=== PATIENT | female | born 1960 | race Caucasian/White ===

== ENCOUNTER → 2017-03-20 | Outpatient (CLI) | payer BC ==
[~2017-03-20] MED LIST: METO50TA16 PO
[2017-03-20 18:14] LABS: MANUAL MICROSCOPIC REQUIRED? NO; REVIEW REQ? NO; URINE APPEARANCE CLEAR (CLEAR); URINE BILIRUBIN NEG (NEG); URINE COLOR YELLOW; URINE NITRITE NEG (NEG); URINE SPECIFIC GRAVITY 1.018 (1.000-1.030); UROBILINOGEN NEG (NEG); ZZUR CULT IF INDIC CLEAN CATCH NO
== END | disposition home or self-care (01) ==
LOC: C.LABPBG 15:48
PROVIDERS: ATTEND Nurse Practitioner Family
DX: R39.9 Unspecified symptoms and signs involving the genitourinary system (principal)

== ENCOUNTER → 2017-08-15 | Outpatient (CLI) | payer BC ==
--- NOTE | 2017-08-15 14:35 | MAMMOGRAPHY REPORT ---
BILATERAL DIGITAL SCREENING MAMMOGRAM TOMOSYNTHESIS WITH CAD: 08/15/2017 CLINICAL HISTORY: Routine screening. Patient has no complaints. TECHNIQUE: Breast tomosynthesis in addition to standard 2D mammography was performed. Current study was also evaluated with a Computer Aided Detection (CAD) system. COMPARISON: Comparison is made to exams dated: 08/13/2016 mammogram, 08/11/2015 mammogram, 04/09/2014 mammogram, 04/08/2013 mammogram, 04/07/2012 mammogram, and 04/04/2011 mammogram - [facility]. BREAST COMPOSITION: There are scattered areas of fibroglandular density in both breasts. FINDINGS: No suspicious masses, calcifications, or areas of architectural distortion are noted in ei ther breast. There has been no significant interval change compared to prior exams. IMPRESSION: ACR BI-RADS CATEGORY 1: NEGATIVE There is no mammographic evidence of malignancy. A 1 year screening mammogram is recommended. The pa tient will receive written notification of the results. Approximately 10% of breast cancers are not detected with mammography. A negative mammographic report should not delay biopsy if a clinically suggestive mass is present. Bhumika Krishnan M.D. /:08/15/2017 11:41:11 Airline Lounge Receptionist: Sylvia Dove, [facility] letter sent: Normal 1/2 BI-RADS Code: ACR BI-RADS Category 1: Negative
== END | disposition home or self-care (01) ==
LOC: C.MAMM 09:12
PROVIDERS: ATTEND Family Medicine
DX: Z12.31 Encounter for screening mammogram for malignant neoplasm of breast (principal)

== ENCOUNTER 2021-03-29 05:16 | Inpatient (IN) ==
--- NOTE | 2021-02-16 13:05 | PAT Medication Instructions ---
Medication Instructions Date of Service February 16, 2021 Home Medications Medication Instructions Recorded losartan 25 mg tablet 25 mg PO DAILY #90 tab 04/18/20 metoprolol succinate 25 mg 25 mg PO BID #180 tab 04/18/20 tablet,extended release 24 hr spironolactone 25 mg tablet 25 mg PO DAILY #90 tab 11/11/20 losartan 25 mg tablet 25 mg PO DAILY metoprolol succinate 25 mg tablet,extended release 24 hr 25 mg PO BID spironolactone 25 mg tablet 25 mg PO DAILY cholecalciferol (vitamin D3) [Vitamin D3] 25 mcg PO QAM vitamin E 100 unit PO QAM STOP taking 2 weeks before surgery (or as soon as possible if surgery is within 2 weeks) vitamin E 100 unit PO QAM DO NOT take the morning of surgery losartan 25 mg tablet 25 mg PO DAILY spironolactone 25 mg tablet 25 mg PO DAILY cholecalciferol (vitamin D3) [Vitamin D3] 25 mcg PO QAM Take morning of surgery With a small sip of water, OTHERWISE NOTHING TO EAT OR DRINK AFTER MIDNIGHT: metoprolol succinate 25 mg tablet,extended release 24 hr 25 mg PO BID Take evening before surgery metoprolol succinate 25 mg tablet,extended release 24 hr 25 mg PO BID Other Notes If you have any questions please call us at [phone] or [phone] or [phone] or [phone]
--- NOTE | 2021-02-20 11:47 | Anesthesiology Consultation ---
Date of Service February 20, 2021 Assessment & Plan (1) Encounter for pre-operative examination: COVID Status: As of 02/20 assessment, patient denies travel to endemic area, known exposure/sick contacts, or symptoms of COVID19. Patient instructed that they and their household members must follow strict social distancing guidelines, wear a mask in public and avoid travel/events/gatherings for 14 days prior to surgery. Preoperative COVID19 testing to be completed prior to surgery per surgeon's arrangements (pt aware of need for test). Patient made aware to self-isolate as much as possible between COVID testing and surgery. Pt is fully vaccinated. *Presumed DIFFICULT AIRWAY -- based on exam and pt's own report. May also be difficult SAB due to body habitus. Chart Review Chart Review: Acceptable Risk for Surgery and Patient seen in Pre Admission Testing Teaching & Discussion Instructed NPO after midnight before surgery, except medications with 15 cc of water. Medication instructions provided according to the PAT guidelines. History Surgery Operation Date: 03/29/21 12:45 Proposed Procedures p Right Total Knee Arthroplasty - Rodolfo Rosales DO Height/Weight Height: 5 ft 2.5 in Weight: 121.6 kg Allergies Allergy/AdvReac Type Severity Reaction Status Date / Time No Known Allergies Allergy Unknown Verified 02/06/21 09:46 Medications Home Medications Medication Instructions Recorded Confirmed Last Taken losartan 25 mg tablet 25 mg PO DAILY #90 tab 04/18/20 02/06/21 Unknown metoprolol succinate 25 mg 25 mg PO BID #180 tab 04/18/20 02/06/21 Unknown tablet,extended release 24 hr spironolactone 25 mg tablet 25 mg PO DAILY #90 tab 11/11/20 02/06/21 Unknown cholecalciferol (vitamin D3) 25 mcg PO QAM 02/06/21 02/06/21 Unknown [Vitamin D3] vitamin E 100 unit PO QAM 02/06/21 02/06/21 Unknown Past Medical History Medical History Dysphagia To have EGD 02/22 at [facility] Fatty liver GERD (gastroesophageal reflux disease) Glaucoma Hirsutism Hypertension Hypertriglyceridemia Morbid obesity Snoring Has been sleeping in a recliner for years, unable to lay flat Vitamin D deficiency Exercise / Class Metabolic Activity III < 4 Walking/Shop/Light housework (Does not do stairs, denies CP or SOB with ambulation on one level) Past Family History Family History Grandfather (Maternal) Family history of diabetes mellitus Father COPD (chronic obstructive pulmonary disease) Hypertension Grandmother (Maternal) Heart disease Myocardial infarction Brother Family history of diabetes mellitus Other Diabetes No family history of adverse response to anesthesia Denies family history of Ovarian cancer Prostate cancer Breast cancer Lung cancer Colorectal cancer Past Surgical History Surgical History Difficult airway for intubation per pt she was told by an anesthesiologist at [facility] that "she has a small airway" H/O eye surgery RT/LEFT EYE "FOR GLAUCOMA" History of ankle surgery right; no hardware History of colonoscopy History of hemorrhoidectomy History of repair of congenital cleft palate History of tooth extraction S/P dilatation and curettage Status post abdominal hysterectomy and left salpingo-oophorectomy Past Anesthesia History Difficult Airway (pt reports she was told this by previous MDAs) History of PONV No Hx of PONV Social History Smoking Status: Never smoker Do You Dip or Chew Tobacco: No Hx Alcohol Use: No Hx Substance Use: No substance use type: does not use Review of Systems Pt denies any recent chest pain, shortness of breath, palpitations, cough, fever, URI, or uncontrolled acid reflux. +dysphagia +knee pain Physical Exam Vital Signs BP: 129/87 P: 73bpm SPO2: 94% RA T: 98.1 F R: 18 Constitutional + morbidly obese ENMT Mouth: + small oral opening; no dental restorations, no chipped teeth and no loose teeth Thyromental Distance: > or= 3.5 Finger Breadths (difficult to palpate) Mallampati Class: IV Neck + thick neck (very); neck extension not limited Respiratory normal respiratory effort, lungs clear to auscultation Cardiovascular RRR, no murmur, no edema Testing Laboratory Results 02/20/21 11:55 02/20/21 11:55 PT 10.4 Seconds (9.0-12.0) 02/20/21 11:55 INR 1.0 (0.9-1.1) 02/20/21 11:55 APTT 28.5 Seconds (21.0-31.0) 02/20/21 11:55 Hemoglobin A1c 6.2 % (4.5-5.6) H 02/20/21 11:55 Blood Type O Positive 02/20/21 11:55 Antibody Screen NEGATIVE 02/20/21 11:55 Electrocardiogram Date: 02/20/21 Findings: + NSR @ (74bpm) Chest X-Ray Date: 02/20/21 Findings: + NAD
--- NOTE | 2021-02-20 12:35 | XRay Report ---
XR chest Pre-admission PA/Lat CLINICAL HISTORY: Preoperative chest. ABNORMAL LIVER ENZYMES. CHOLELITHIASIS. COMPARISON STUDY: No previous studies for comparison. FINDINGS: The cardiac and mediastinal contours are normal. There is no evidence of focal pulmonary co nsolidation. There is no evidence of failure. No pleural effusions are visualized.[Degenerative domingo es are present within the dorsal spine. IMPRESSION: No active disease in the chest. ACT 112: Negative or not required by law. Electronically signed by: Arsenio Hall M.D. 02/20/2021 12:34 PM
[2021-02-20 13:10] LABS: Basophils # (auto) 0.03 K/uL (0-0.2); Basophils % (auto) 0.5 %; Eosinophils # (auto) 0.25 K/uL (0-0.5); Hemoglobin 15.1 g/dL (12.0-16.0); Immature Granulocytes # (auto) 0.01 K/uL (0.00-0.02); Immature Granulocytes % (auto) 0.2 %; Lymphocytes # (auto) 2.08 K/uL (1.2-3.4); Lymphocytes % (auto) 33.4 %; Mean Corpuscular Hemoglobin 29.5 pg (25-34); Mean Corpuscular Hgb Conc 32.1 g/dL (32-36); Mean Platelet Volume 10.3 fL (7.4-10.4); Monocytes # (auto) 0.41 K/uL (0.11-0.59); Monocytes % (auto) 6.6 %; Neutrophils # (auto) 3.44 K/uL (1.4-6.5); Neutrophils % (auto) 55.3 %; Platelet Count 174 K/uL (130-400); RDW Coefficient of Variation 13.9 % (11.5-14.5); RDW Standard Deviation 47.1 fL (36.4-46.3); Red Blood Count 5.11 M/uL (4.2-5.4); White Blood Count 6.22 K/uL (4.8-10.8)
[2021-02-20 13:20] LABS: Partial Thromboplastin Ratio 1.1; Partial Thromboplastin Time 28.5 Seconds (21.0-31.0); Prothrombin Time 10.4 Seconds (9.0-12.0)
[2021-02-20 13:56] LABS: Estimated Average Glucose 131 mg/dl; Hemoglobin A1C 6.2 % (4.5-5.6)
--- NOTE | 2021-02-20 14:52 | Electrocardiogram Report ---
Test Reason : Blood Pressure : / mmHG Vent. Rate : 074 BPM Atrial Rate : 074 BPM P-R Int : 146 ms QRS Dur : 082 ms QT Int : 388 ms P-R-T Axes : 054 070 067 degrees QTc Int : 430 ms Normal sinus rhythm Normal ECG No previous ECGs available Confirmed by Bassem Michel ([id number]) on 02/20/2021 2:52:26 PM Referred By: Rodolfo Rosales Confirmed By:Bassem Michel
[2021-02-20 16:27] LABS: Albumin Level 3.8 gm/dl (3.4-5.0); BUN Creatinine Ratio 18.8 (10-20); Calcium 9.2 mg/dl (8.5-10.1); Creatinine Clr Calc Pharmacy 88.1 ml/min; Est GFR (African American) 87.6; Est GFR (Non-African American) 75.6; Potassium 4.1 mmol/L (3.5-5.1)
[2021-02-21 13:17] LABS: Appearance Urine Clear (Clear); Bilirubin Urine Negative (Negative); Blood Urine Negative (Negative); Color Urine Yellow; Glucose Urine UA Negative (Negative); Ketones Urine Negative (Negative); Leukocyte Esterase Urine Negative (Negative); Nitrite Urine Negative (Negative); Protein Urine Negative (Negative); Specific Gravity Urine 1.019 (1.000-1.030); Urobilinogen Urine Negative (Negative)
--- NOTE | 2021-03-01 13:26 | History & Physical Report ---
Date of Service March 01, 2021 date of surgery: 03/29/21 Procedure: Right Total Knee Arthroplasty Assessment & Plan (1) Arthritis of right knee: Further care discussed with patient and at this point in time has failed conservative measures and would like to proceed with a Right total knee rep lacement. Plan on discharge will be home with home health physical therapy. DVT prophalaxis with TEDs, SCDs and will also place on aspirin 81 mg p.o. b.i.d. for a month postop. Patient will have follow up appointment in our office two weeks post op for staple removal and re-evaluation. Patient otherwise has no other questions or concerns. The risks and benefits have been discussed including, but not limited to, risk of infection, nerve injury, stiffness, loss of motion, failure to improve, etc. Reasonable outcomes and options of treatment were discussed. An explanation of appropriate alternatives to the procedure that may be advantageous were discussed and their risks and benefits, as well as the risks and benefits of not proceeding with treatment. I offered to answer any additional inquiries concerning the treatment involved. All the patient's questions were answered. The patient is agreeable, understanding of the treatment plan and alternatives, and wishes to proceed with the treatment plan. History of Present Illness Chief Complaint: Right knee pain Primary Care Provider: DO Larissa Gerber is a 60 year old female who complains of Right knee pain, presents for pre- op evaluation prior to a right total knee replacement by Dr Rosales at [facility]. she complains of pain and stiffness in the right knee. Currently the patient states that the symptoms are moderate-severe and is rated at 4/10. The pain is described as aching, sharp and throbbing. The symptoms are aggravated by ascending stairs, daily activities, first steps while awake walking. Prior NSAIDs include Aleve and IBU. she has been treated with previous cortisone and visco injections (Durolane) in the past without much relief. she also uses a brace on her right knee. Allergies Allergy/AdvReac Type Severity Reaction Status Date / Time No Known Allergies Allergy Unknown Verified 02/22/21 11:22 Home Medications Medication Instructions Recorded Confirmed Type losartan 25 mg tablet 25 mg PO DAILY #90 tab 04/18/20 02/22/21 Rx metoprolol succinate 25 mg 25 mg PO BID #180 tab 04/18/20 02/22/21 Rx tablet,extended release 24 hr spironolactone 25 mg tablet 25 mg PO DAILY #90 tab 11/11/20 02/22/21 Rx cholecalciferol (vitamin D3) 25 mcg PO QAM 02/06/21 02/22/21 History [Vitamin D3] vitamin E 100 unit PO QAM 02/06/21 02/22/21 History pantoprazole 40 mg PO DAILY #30 tab 02/22/21 Rx pantoprazole 40 mg PO DAILY #30 tab 02/22/21 Rx Past Med/Surg History Medical History Dysphagia To have EGD 02/22 at [facility] Fatty liver GERD (gastroesophageal reflux disease) Glaucoma Hirsutism Hypertension Hypertriglyceridemia Morbid obesity Snoring Has been sleeping in a recliner for years, unable to lay flat Vitamin D deficiency Surgical History Difficult airway for intubation per pt she was told by an anesthesiologist at [facility] that "she has a small airway" H/O eye surgery RT/LEFT EYE "FOR GLAUCOMA" History of ankle surgery right; no hardware History of colonoscopy History of hemorrhoidectomy History of repair of congenital cleft palate History of tooth extraction S/P dilatation and curettage Status post abdominal hysterectomy and left salpingo-oophorectomy Family History Grandfather (Maternal) Family history of diabetes mellitus Father COPD (chronic obstructive pulmonary disease) Hypertension Grandmother (Maternal) Heart disease Myocardial infarction Brother Family history of diabetes mellitus Other Diabetes No family history of adverse response to anesthesia Denies family history of Ovarian cancer Prostate cancer Breast cancer Lung cancer Colorectal cancer Social History Smoking Status: Never smoker Second Hand Exposure: Yes (dad smoked); Hx Alcohol Use: No Hx Substance Use: No Preferred Language: Sami Communication Ability: Effective Visual Impairment: No Limitations Hearing Ability: Normal Substance Abuse Nurse Required: No Beliefs That Will Affect Care: None marital status: Current Living Situation: Spouse current occupational status: employed Feels Safe at Home: Yes Childhood Exposure to Second-Hand Smoke: Yes Diet Comment: regular caffeine: No during the past year weight has: remained stable Dental Care, Regularly: Yes Physical Activity Frequency: Does not Exercise Seatbelt Use: always Sunscreen Use: No Assistive Devices: Glasses Review of Systems Review of Systems: All systems reviewed & are unremarkable except as noted in HPI & below Constitutional: no fever, no chills and no sweats Respiratory: no cough and no dyspnea Cardiovascular: no chest pain, no dyspnea and no orthopnea Gastrointestinal: no abdominal pain, no nausea and no vomiting Musculoskeletal: as per Subjective / HPI Physical Exam Physical Exam: HT: 5ft 2 in WT: 121.6kg BP: 130/82 Pulse: 76 Constitutional: WD/WN, vitals as above no acute distress Respiratory: normal respiratory effort, lungs clear to auscultation no respiratory distress, no labored breathing and does not use accessory muscles Cardiovascular: RRR, no murmur, no edema Gastrointestinal (Abdomen): normal bowel sounds, soft, nontender, no hepatosplenomegaly Musculoskeletal: Knee: + knee abnormal to inspection (Right Knee), + effusion (+1 effusion), + limited ROM of knee (ROM 0/3/110), + knee ROM with crepitation, + joint line tenderness (medial joint line) and + Cory's sign positive; no deformity, no skin erythema, no ecchymosis, no valgus laxity, no varus laxity, anterior drawer test negative, Flori's sign negative and pivot shift test negative Results & Data Results & Data ([facility]) Laboratory Results Laboratory Results WBC 6.22 K/uL (4.8-10.8) 02/20/21 11:55 RBC 5.11 M/uL (4.2-5.4) 02/20/21 11:55 Hgb 15.1 g/dL (12.0-16.0) 02/20/21 11:55 Hct 47.0 % (37-47) 02/20/21 11:55 MCV 92.0 fL (80-100) 02/20/21 11:55 MCH 29.5 pg (25-34) 02/20/21 11:55 MCHC 32.1 g/dL (32-36) 02/20/21 11:55 RDW Std Deviation 47.1 fL (36.4-46.3) H 02/20/21 11:55 RDW Coeff of Noreen 13.9 % (11.5-14.5) 02/20/21 11:55 Plt Count 174 K/uL (130-400) 02/20/21 11:55 MPV 10.3 fL (7.4-10.4) 02/20/21 11:55 Immature Gran % (Auto) 0.2 % 02/20/21 11:55 Neut % (Auto) 55.3 % 02/20/21 11:55 Lymph % (Auto) 33.4 % 02/20/21 11:55 Evans % (Auto) 6.6 % 02/20/21 11:55 Eos % (Auto) 4.0 % 02/20/21 11:55 Baso % (Auto) 0.5 % 02/20/21 11:55 Neut # (Auto) 3.44 K/uL (1.4-6.5) 02/20/21 11:55 Lymph # (Auto) 2.08 K/uL (1.2-3.4) 02/20/21 11:55 Evans # (Auto) 0.41 K/uL (0.11-0.59) 02/20/21 11:55 Eos # (Auto) 0.25 K/uL (0-0.5) 02/20/21 11:55 Baso # (Auto) 0.03 K/uL (0-0.2) 02/20/21 11:55 Immature Gran # (Auto) 0.01 K/uL (0.00-0.02) 02/20/21 11:55 PT 10.4 Seconds (9.0-12.0) 02/20/21 11:55 INR 1.0 (0.9-1.1) 02/20/21 11:55 APTT 28.5 Seconds (21.0-31.0) 02/20/21 11:55 PTT Ratio 1.1 02/20/21 11:55 Sodium 141 mmol/L (136-145) 02/20/21 11:55 Potassium 4.1 mmol/L (3.5-5.1) 02/20/21 11:55 Chloride 106 mmol/L (98-107) 02/20/21 11:55 Carbon Dioxide 31 mmol/L (21-32) 02/20/21 11:55 Anion Gap 4.0 (3-11) 02/20/21 11:55 BUN 16 mg/dl (7-18) 02/20/21 11:55 Creatinine 0.83 mg/dl (0.6-1.2) 02/20/21 11:55 Est Cr Clr Drug Dosing 88.1 ml/min 02/20/21 11:55 Est GFR ( Amer) 87.6 02/20/21 11:55 Est GFR (Non-Af Amer) 75.6 02/20/21 11:55 BUN/Creatinine Ratio 18.8 (10-20) 02/20/21 11:55 Glucose 114 mg/dl (70-99) H 02/20/21 11:55 Estimat Average Glucose 131 mg/dl 02/20/21 11:55 Hemoglobin A1c 6.2 % (4.5-5.6) H 02/20/21 11:55 Calcium 9.2 mg/dl (8.5-10.1) 02/20/21 11:55 Albumin 3.8 gm/dl (3.4-5.0) 02/20/21 11:55 Urine Color Yellow 02/21/21 09:00 Urine Appearance Clear (Clear) 02/21/21 09:00 Urine pH 5.0 (4.5-7.5) 02/21/21 09:00 Ur Specific [place] 1.019 (1.000-1.030) 02/21/21 09:00 Urine Protein Negative (Negative) 02/21/21 09:00 Urine Glucose (UA) Negative (Negative) 02/21/21 09:00 Urine Ketones Negative (Negative) 02/21/21 09:00 Urine Blood Negative (Negative) 02/21/21 09:00 Urine Nitrite Negative (Negative) 02/21/21 09:00 Urine Bilirubin Negative (Negative) 02/21/21 09:00 Urine Urobilinogen Negative (Negative) 02/21/21 09:00 Ur Leukocyte Esterase Negative (Negative) 02/21/21 09:00 Blood Type O Positive 02/20/21 11:55 Antibody Screen NEGATIVE 02/20/21 11:55 Impressions Chest X-Ray 02/20/21 08:24 XR chest Pre-admission PA/Lat CLINICAL HISTORY: Preoperative chest. ABNORMAL LIVER ENZYMES. CHOLELITHIASIS. COMPARISON STUDY: No previous studies for comparison. FINDINGS: The cardiac and mediastinal contours are normal. There is no evidence of focal pulmonary consolidation. There is no evidence of failure. No pleural effusions are visualized.[Degenerative changes are present within the dorsal spine. IMPRESSION: No active disease in the chest. ACT 112: Negative or not required by law. Electronically signed by: Arsenio Hall M.D. 02/20/2021 12:34 PM Diagnostic Findings Right Knee X-ray: Right knee series showing degenerative changes to the right knee, narrowing of the medial compartment and patello-femoral joint with patellar spurring noted, findings showing joint space narrowing of the medial compartment and patello- femoral joint, osteophyte formation and subchondral sclerosis noted. overall varus alignment. no acute bony pathology noted.
[2021-03-29] MEDS ORDERED: FAMOTIDINE 20 MG TAB PO SCH (06:00)
[2021-03-29] MEDS ORDERED: CeleBREX 200 MG CAP PO SCH (06:00)
[2021-03-29] MEDS ORDERED: METOCLOPRAMIDE HCL 10 MG TABLET PO SCH (06:00)
[2021-03-29] MEDS ORDERED: TRANEXAMIC ACID 1,000 MG **IV Pre-op IV SCH (06:00)
[2021-03-29] MEDS ORDERED: ROPIVACAINE 0.5% HCL/PF 150 MG, BUPIVACAINE 0.75% MPF 20 ML, EPINEPHrine 30MG/30ML (OR ... INSTIL SCH (06:00)
[2021-03-29] MEDS ORDERED: LR 15ML/HR IV SCH (06:00)
[2021-03-29] MEDS ORDERED: TRANEXAMIC ACID 1,000 MG **IV Intra-op IV SCH (06:00)
[2021-03-29] MEDS ORDERED: GABAPENTIN 600 MG DOSE PO SCH (06:00)
[2021-03-29] MEDS ORDERED: ACETAMINOPHEN 500 MG TAB PO SCH (06:00)
[2021-03-29] MEDS ORDERED: dexAMETHasone 4 MG TAB PO SCH (06:00)
[2021-03-29] MEDS ORDERED: EPINEPHrine INJ 1 MG/ML AMP ONE (06:20)
[2021-03-29] MEDS ORDERED: ROPIVACAINE 0.5% 5 MG/ML 30 ML VIAL ONE (06:20)
[2021-03-29] MEDS ORDERED: BUPIVACAINE 0.5 % 5 MG/1 ML PF 10ML VIAL ONE (06:20)
[2021-03-29] MEDS ORDERED: LIDOCAINE 2% 2 ML VIAL/AMP(20MG/ML) INFIL ONE ×2 (06:43→06:44)
[2021-03-29] MEDS ORDERED: PROPOFOL IV EMULSION 10 MG/ML 20 ML VIAL IV ONE ×2 (06:43→06:44)
[2021-03-29] MEDS ORDERED: fentaNYL citrate 100 MCG/2 ML VIAL ONE (06:43)
[2021-03-29] MEDS ORDERED: MIDAZOLAM HCL 1 MG/ML 2ML VIAL ONE (06:43)
[2021-03-29] MEDS ORDERED: ORTHO JOINT ANESTHETIC ONE (06:45)
--- NOTE | 2021-03-29 07:17 | History & Physical Bridge Note ---
Date of Service March 29, 2021 History & Physical Bridge Note I have examined the patient, reviewed the History & Physical and in the interval since the performance of the History & Physical I have noted the following changes of clinical significance: no changes noted
[2021-03-29] MEDS ORDERED: MEPERIDINE HCL 25 MG/ML CARP/VIAL IV PRN (08:01)
[2021-03-29] MEDS ORDERED: PHENYLEPHRINE 100MCG/ML 5ML SYR IV PRN (08:01)
[2021-03-29] MEDS ORDERED: ONDANSETRON INJ 2 MG/ML 2 ML VIAL IV PRN ×2 (08:01→10:39)
[2021-03-29] MEDS ORDERED: ATROPINE SULFATE 0.1 MG/ML 10ML SYR IV PRN (08:01)
[2021-03-29] MEDS ORDERED: LABETALOL HCL IV 5 MG/ML 20ML IV PRN (08:01)
[2021-03-29] MEDS ORDERED: HYDROmorphone INJ 1 MG/ML SYRINGE IV PRN (08:01)
[2021-03-29] MEDS ORDERED: fentaNYL citrate 100 MCG/2 ML VIAL IV PRN (08:01)
[2021-03-29] MEDS ORDERED: ePHEDrine sulfate 50 MG/ML AMP IV PRN (08:01)
--- NOTE | 2021-03-29 08:26 | Operative Report ---
Post Operative Report Pre & Post Diagnosis Operation Date: 03/29/21 07:00 Pre-Op Diagnosis: Osteoarthritis, Right Knee Post-Op Diagnosis: Osteoarthritis, Right Knee I identified the patient and participated in the time-out.: Yes Procedure Operation Date: 03/29/21 07:00 Actual Procedures p Right Total Knee Arthroplasty(Right) utilizing [employer] persona size femur 7 narrow tibia D right \polyethylene 11 medial constrained patella 31 x 8 salvador- Rodolfo Rosales DO Surgeon Rodolfo Rosales DO Tie Buyer Ion CUENCA Estimated Blood Loss 5 Findings Consistent with Post-Op Diagnosis Patient resents with severe stage tricompartmental degenerative joint disease varus alignment subchondral sclerosis marginal osteophytes eburnated [id number] with moderate to large effusion Specimens Bone and cartilage Drains Medium bore Hemovac Anesthesia Type MAC Spinal Regional Complications none Disposition Accompanied Patient To Recovery: No Disposition: Recovery Room Indications Patient presents with severe end-stage tricompartmental degenerative joint disease right knee no response to conservative management clinic physical the rapy anti-inflammatories relative rest activity modification corticosteroid injection viscosupplementation above intraoperative findings were noted. Description of Procedure After proper prepping and draping of the Right lower extremity anterior midline incision was made over the region of the extensor extensor mechanism after meticulous hemostasis was obtained and maintained in subcutaneous tissues a medial parapatellar incision was made The patella was subluxed lateralward the medial lateral gutter were cleaned from any hypertrophic synovitis and scar tissue of the distal femoral block was placed and the distal femoral osteotomy cut was made subsequently the chamfers anterior and posterior osteotomy cuts were made utilizing the 4-in-1 block the tibia was subsequently subluxed anteriorward medial and ateral meniscal remnants were excised in their entirety remnants of the anterior and posterior cruciate ligaments were excised in their entirety excellent exposure of the proximal tibia was obtained the tibial osteotomy guide was placed on the proximal tibial osteotomy cut was made once again the knee was irrigated with copious amounts of sterile saline solution the patella was subsequently everted lateralward thickened scar tissue around the patella was removed the patella was subsequently cut utilizing a freehand technique and was drilled prepared for final preparation and placement of patella socially flexion-extension gaps were checked and the equal and symmetric trials were placed to the appropriate femoral and tibial trials with poly-spacer being placed for equal flexion and extension gaps and full range of motion including extension to 0 and flexion to 140 the trial components after having been taken to recovery range of motion was subsequently removed meticulous hemostasis was obtained and maintained subsequently a knee block injection of joint cocktail including ropivacaine 0.5% 150 mg. Bupivacaine 0.5% epinephrine 1-200,030 mL's toradol 30 mg dexamethasone 4 mg ketamine 10 mg clonidine 100 micrograms normal saline solution 30 mg was infiltrated into the soft tissues of the posterior knee medial lateral gutters and periosteal synovium special attention was paid to protect neurovascular structures at all times subsequently trial components having been removed the knee was irrigated with sterile saline solution. debris was removed the proximal tibia was subsequently prepared and was made ready for the placement of the tibial component tibial component was also cemented and tamped into position the femoral component was subsequently placed and cemented in the position the patellar component was subsequently cemented in position because hemostasis once again obtained and maintained wound having been thoroughly irrigated with debridement and debridement lavage was performed as well as a medial parapatellar incision closed with #1 Vicryl in interrupted fashion subcutaneous was closed with #2 Vicryl skin was closed with skin clips. PA-C was necessary for prepping and drapping as well as wound closure of deep fascia Sub cutaneous tissue and skin and was necessary for the case. A sterile compressive dressing was placed patient was taken to recovery in stable condition of report dictated by Bobby I attest to the content of the Intraoperative Record and any orders documented therein. Any exceptions are noted below. I attest to the content of the Intraoperative Record and any orders documented therein. Any exceptions are noted below.
--- NOTE | 2021-03-29 10:12 | Anesthesiology Progress Note ---
Date of Service March 29, 2021 Anesthesia Post Procedure Vital Signs Vital Signs: Temp Pulse Pulse Resp BP BP Pulse Ox 03/29/21 10:10 36.4 C L 65 20 124/57 L 94 03/29/21 10:00 74 20 102/65 95 03/29/21 09:50 92 H 17 107/69 93 03/29/21 09:40 70 17 107/66 94 03/29/21 09:30 77 16 111/64 95 03/29/21 09:20 77 18 111/59 L 96 03/29/21 09:13 36.2 C L 99 H 16 131/63 95 03/29/21 05:33 36.6 C 87 20 154/96 H 96 Transfer of Care Handoff Completed per policy Notes Mental Status: alert / awake / arousable Patient Amnestic to Procedure: Yes Nausea / Vomiting: adequately controlled Pain: adequately controlled Airway Patency, RR, SpO2: stable & adequate BP & HR: stable & adequate Hydration State: stable & adequate Neuraxial Anesthesia: was administered and sensory block is resolving Anesthetic Complications: no major complications apparent and Pt Satisfied with anesthetic care
[2021-03-29] MEDS ORDERED: MAGNESIUM HYDROXIDE SUSP 30 ML UDC PO PRN (10:39)
[2021-03-29] MEDS ORDERED: bisacodyL 10 MG SUPP PR PRN (10:39)
[2021-03-29] MEDS ORDERED: HYDROmorphone INJ 0.5 MG/0.5 ML SYR IV PRN (10:39)
[2021-03-29] MEDS ORDERED: NALOXONE HCL 0.4 MG/1 ML VIAL/CARP IV PRN (10:39)
--- NOTE | 2021-03-29 10:43 | XRay Report ---
XR knee RT 1 or 2V routine CLINICAL HISTORY: Surgical Post Op COMPARISON: 05/25/2014 DISCUSSION: There are postsurgical changes of a total right knee arthroplasty and patellar resurfacin g. Overlying skin bakari and surgical drains are visualized. Femoral tibial components appear well s eated. IMPRESSION: Postsurgical changes of a total right knee arthroplasty. ACT 112: Negative or not required by law. Electronically signed by: Arsenio Hall M.D. 03/29/2021 10:42 AM
[2021-03-29] MEDS: SODIUM CHLORIDE 0.9% 1000ML 1,000 ML IV SCH ×2 (11:05→21:58)
[2021-03-29] MEDS: ceFAZolin 2000MG 2,000 MG/15 ML SYR IV SCH ×2 (14:15→21:01)
[2021-03-29] MEDS: oxyCODONE HCL IR 5 MG TAB (IMMEDIATE RELEASE) PO PRN ×2 (17:15→19:47)
[2021-03-29] MEDS: FERROUS GLUCONATE 324 MG TAB PO SCH (17:15)
[2021-03-29] MEDS ORDERED: SENNA 8.6 MG TAB PO SCH (21:00)
[2021-03-29] MEDS: DOCUSATE SODIUM 100 MG CAP PO SCH (21:00)
[2021-03-29] MEDS: METOPROLOL SUCC 25MG EXT REL TAB PO SCH (21:00)
[2021-03-29] MEDS: ACETAMINOPHEN 500 MG TAB PO SCH (21:01)
[2021-03-30] MEDS: oxyCODONE HCL IR 5 MG TAB (IMMEDIATE RELEASE) PO PRN ×3 (05:20→12:50)
[2021-03-30] MEDS: ACETAMINOPHEN 500 MG TAB PO SCH (05:20)
[2021-03-30 06:01] LABS: Hematocrit (blood only) 41.9 % (37-47); Mean Corpuscular Hemoglobin 29.2 pg (25-34); Mean Corpuscular Volume 94.2 fL (80-100); Mean Platelet Volume 10.3 fL (7.4-10.4); Platelet Count 178 K/uL (130-400); RDW Coefficient of Variation 13.9 % (11.5-14.5); RDW Standard Deviation 47.6 fL (36.4-46.3); Red Blood Count 4.45 M/uL (4.2-5.4); White Blood Count 13.13 K/uL (4.8-10.8)
[2021-03-30 06:36] LABS: BUN Creatinine Ratio 19.1 (10-20); Calcium 8.5 mg/dl (8.5-10.1); Creatinine Clr Calc Pharmacy 74.9 ml/min; Est GFR (African American) 70.8 ml/min; Est GFR (Non-African American) 61.1 ml/min
--- NOTE | 2021-03-30 07:19 | Orthopedic Progress Note ---
Date of Service March 30, 2021 Assessment & Plan (1) History of total right knee replacement: POD #1 s/p Right TKA pt/ot dvt proph with GUILLE/SCD/ASA plan for d/c home with HHPT when stable Admission and Anticipated Discharge Date Admission Date: March 29, 2021 Subjective POD #1 s/p Right TKA Review of Systems Constitutional: no fever, no chills and no sweats Respiratory: no cough and no dyspnea Cardiovascular: no chest pain and no dyspnea Gastrointestinal: no abdominal pain, no nausea and no vomiting Physical Exam Physical Exam: Vital Signs Temp 36.5 C 03/30/21 03:24 Pulse 70 03/30/21 03:24 Resp 18 03/30/21 03:24 BP 121/76 03/30/21 03:24 Pulse Ox 96 03/30/21 03:24 Intake & Output 03/29/21 03/30/21 03/30/21 18:59 06:59 18:59 Intake Total 1532.5 / 2732.5 1200 / 2732.5 Output Total 355 / 705 350 / 705 Balance 1177.5 / 2027.5 850 / 2027.5 Intake: IV 272.5 / 1272.5 1000 / 1272.5 Lactated Ringe r's 1,000 ml @ 15 0 / 0 mls/hr IV .Q24 H LEILA Rx#: [id number] Sodium Chlorid e 0.9% 1000ML 1, 1000 / 1000 000 ml @ 100 m ls/hr IV .Q10H LEILA Rx#:[id number] Tranexamic Aci d / 0.7% NaCl 1, 200 / 200 000 mg In 100 ml @ 600 mls/hr IV TODAY@0600 LEILA Rx#:[id number] ceFAZolin 3000 MG 72.5 ml @ 130 72.5 / 72.5 mls/hr IV PREO P LEILA Rx#: [id number] IV Perioperative 1100 / 1100 Oral 160 / 360 200 / 360 Output: Urine 350 / 350 Estimated Blood Loss 5 / 5 Drain Output 350 / 350 Right Knee 350 / 350 Other: # Unmeasured Voi ds 1 1 Constitutional: WD/WN, vitals as above no acute distress Musculoskeletal: Right Leg: NVDI, calf SNT, negative alexander sign. DP palpable, able to wiggle toes/ankle movement without difficulty. dressing clean dry and intact. Results & Data ([facility]) Vital Signs (Past 12 Hours) Vital Signs Temp Pulse Resp BP Pulse Ox 03/30/21 03:24 36.5 C 70 18 121/76 96 03/29/21 23:47 96 03/29/21 23:38 36.7 C 74 18 126/78 87 L Laboratory Results Laboratory Results WBC 13.13 K/uL (4.8-10.8) H 03/30/21 05:39 RBC 4.45 M/uL (4.2-5.4) 03/30/21 05:39 Hgb 13.0 g/dL (12.0-16.0) 03/30/21 05:39 Hct 41.9 % (37-47) 03/30/21 05:39 MCV 94.2 fL (80-100) 03/30/21 05:39 MCH 29.2 pg (25-34) 03/30/21 05:39 MCHC 31.0 g/dL (32-36) L 03/30/21 05:39 RDW Std Deviation 47.6 fL (36.4-46.3) H 03/30/21 05:39 RDW Coeff of Noreen 13.9 % (11.5-14.5) 03/30/21 05:39 Plt Count 178 K/uL (130-400) 03/30/21 05:39 MPV 10.3 fL (7.4-10.4) 03/30/21 05:39 Immature Gran % (Auto) 0.2 % 02/20/21 11:55 Neut % (Auto) 55.3 % 02/20/21 11:55 Lymph % (Auto) 33.4 % 02/20/21 11:55 [place] % (Auto) 6.6 % 02/20/21 11:55 Eos % (Auto) 4.0 % 02/20/21 11:55 Baso % (Auto) 0.5 % 02/20/21 11:55 Neut # (Auto) 3.44 K/uL (1.4-6.5) 02/20/21 11:55 Lymph # (Auto) 2.08 K/uL (1.2-3.4) 02/20/21 11:55 [place] # (Auto) 0.41 K/uL (0.11-0.59) 02/20/21 11:55 Eos # (Auto) 0.25 K/uL (0-0.5) 02/20/21 11:55 Baso # (Auto) 0.03 K/uL (0-0.2) 02/20/21 11:55 Immature Gran # (Auto) 0.01 K/uL (0.00-0.02) 02/20/21 11:55 PT 10.4 Seconds (9.0-12.0) 02/20/21 11:55 INR 1.0 (0.9-1.1) 02/20/21 11:55 APTT 28.5 Seconds (21.0-31.0) 02/20/21 11:55 PTT Ratio 1.1 02/20/21 11:55 Sodium 143 mmol/L (136-145) 03/30/21 05:39 Potassium 5.0 mmol/L (3.5-5.1) 03/30/21 05:39 Chloride 108 mmol/L (98-107) H 03/30/21 05:39 Carbon Dioxide 31 mmol/L (21-32) 03/30/21 05:39 Anion Gap 4.0 (3-11) 03/30/21 05:39 BUN 19 mg/dl (7-18) H 03/30/21 05:39 Creatinine 0.99 mg/dl (0.6-1.2) 03/30/21 05:39 Est Cr Clr Drug Dosing 74.9 ml/min 03/30/21 05:39 Est GFR ( Amer) 70.8 ml/min 03/30/21 05:39 Est GFR (Non-Af Amer) 61.1 ml/min 03/30/21 05:39 BUN/Creatinine Ratio 19.1 (10-20) 03/30/21 05:39 Glucose 161 mg/dl (70-99) H 03/30/21 05:39 Estimat Average Glucose 131 mg/dl 02/20/21 11:55 Hemoglobin A1c 6.2 % (4.5-5.6) H 02/20/21 11:55 Calcium 8.5 mg/dl (8.5-10.1) 03/30/21 05:39 Albumin 3.8 gm/dl (3.4-5.0) 02/20/21 11:55 Urine Color Yellow 02/21/21 09:00 Urine Appearance Clear (Clear) 02/21/21 09:00 Urine pH 5.0 (4.5-7.5) 02/21/21 09:00 Ur Specific [place] 1.019 (1.000-1.030) 02/21/21 09:00 Urine Protein Negative (Negative) 02/21/21 09:00 Urine Glucose (UA) Negative (Negative) 02/21/21 09:00 Urine Ketones Negative (Negative) 02/21/21 09:00 Urine Blood Negative (Negative) 02/21/21 09:00 Urine Nitrite Negative (Negative) 02/21/21 09:00 Urine Bilirubin Negative (Negative) 02/21/21 09:00 Urine Urobilinogen Negative (Negative) 02/21/21 09:00 Ur Leukocyte Esterase Negative (Negative) 02/21/21 09:00 COVID-19 Eval Order Covid19 [facility]Now [facility] 03/29/21 05:36 SARS-CoV-2, RNA, NAAT NEGATIVE (NEGATIVE) 03/29/21 05:36 Blood Type O Positive 02/20/21 11:55 Antibody Screen NEGATIVE 02/20/21 11:55 Impressions Chest X-Ray 02/20/21 08:24 XR chest Pre-admission PA/Lat CLINICAL HISTORY: Preoperative chest. ABNORMAL LIVER ENZYMES. CHOLELITHIASIS. COMPARISON STUDY: No previous studies for comparison. FINDINGS: The cardiac and mediastinal contours are normal. There is no evidence of focal pulmonary consolidation. There is no evidence of failure. No pleural effusions are visualized.[Degenerative changes are present within the dorsal spine. IMPRESSION: No active disease in the chest. ACT 112: Negative or not required by law. Electronically signed by: Arsenio Hall M.D. 02/20/2021 12:34 PM Knee X-Ray 03/29/21 09:50 XR knee RT 1 or 2V routine CLINICAL HISTORY: Surgical Post Op COMPARISON: 05/25/2014 DISCUSSION: There are postsurgical changes of a total right knee arthroplasty and patellar resurfacing. Overlying skin bakari and surgical drains are visualized. Femoral tibial components appear well seated. IMPRESSION: Postsurgical changes of a total right knee arthroplasty. ACT 112: Negative or not required by law. Electronically signed by: Arsenio Hall M.D. 03/29/2021 10:42 AM
[2021-03-30] MEDS: METOPROLOL SUCC 25MG EXT REL TAB PO SCH (07:59)
[2021-03-30] MEDS: FERROUS GLUCONATE 324 MG TAB PO SCH (07:59)
[2021-03-30] MEDS: DOCUSATE SODIUM 100 MG CAP PO SCH (07:59)
[2021-03-30] MEDS ORDERED: TOCOPHERYL, DL-ALPHA 100 UNITS CAP PO SCH (09:00)
[2021-03-30] MEDS ORDERED: MULTIVITAMIN TAB PO SCH (09:00)
[2021-03-30] MEDS ORDERED: SPIRONOLACTONE 25 MG TAB PO SCH (09:00)
[2021-03-30] MEDS ORDERED: LOSARTAN POTASSIUM 25 MG TAB PO SCH (09:00)
[2021-03-30] MEDS ORDERED: CHOLECALCIFEROL 1,000 UNITS 25 MCG TAB PO SCH (09:00)
--- NOTE | 2021-04-03 12:28 | Discharge Summary ---
Date of Service April 03, 2021 Admission HPI Per Admitting Provider Larissa is a 60 year old female who complains of Right knee pain, presents for pre- op evaluation prior to a right total knee replacement by Dr Rosales at [facility]. she complains of pain and stiffness in the right knee. Currently the patient states that the symptoms are moderate-severe and is rated at 4/10. The pain is described as aching, sharp and throbbing. The symptoms are aggravated by ascending stairs, daily activities, first steps while awake walking. Prior NSAIDs include Aleve and IBU. she has been treated with previous cortisone and visco injections (Durolane) in the past without much relief. she also uses a brace on her right knee. Admission Exam Per Admitting Provider Physical Exam: HT: 5ft 2 in WT: 121.6kg BP: 130/82 Pulse: 76 Constitutional: WD/WN, vitals as above no acute distress Respiratory: normal respiratory effort, lungs clear to auscultation no respiratory distress, no labored breathing and does not use accessory muscles Cardiovascular: RRR, no murmur, no edema Gastrointestinal (Abdomen): normal bowel sounds, soft, nontender, no hepatosplenomegaly Musculoskeletal: Knee: + knee abnormal to inspection (Right Knee), + effusion (+1 effusion), + limited ROM of knee (ROM 0/3/110), + knee ROM with crepitation, + joint line tenderness (medial joint line) and + Cory's sign positive; no deformity, no skin erythema, no ecchymosis, no valgus laxity, no varus laxity, anterior drawer test negative, Flori's sign negative and pivot shift test negative Principal Diagnosis Right Knee Djd Discharge Data Allergies Allergy/AdvReac Type Severity Reaction Status Date / Time No Known Drug Allergies Allergy Verified 03/29/21 05:30 Procedures Performed Operation Date: 03/29/21 07:00 Actual Procedures p Right Total Knee Arthroplasty(Right) - Rodolfo Rosales DO Ordered Studies 03/29/21 08:01 US - OR guided needle placemen Routine Hospital Course (1) Osteoarthritis of knee: Date of Service March 30, 2021 Assessment & Plan (1) History of total right knee replacement: POD #1 s/p Right TKA pt/ot dvt proph with GUILLE/SCD/ASA plan for d/c home with HHPT when stable Admission and Anticipated Discharge Date Admission Date: March 29, 2021 Subjective POD #1 s/p Right TKA Review of Systems Constitutional: no fever, no chills and no sweats Respiratory: no cough and no dyspnea Cardiovascular: no chest pain and no dyspnea Gastrointestinal: no abdominal pain, no nausea and no vomiting Physical Exam Physical Exam: Vital Signs Temp 36.5 C 03/30/21 03:24 Pulse 70 03/30/21 03:24 Resp 18 03/30/21 03:24 BP 121/76 03/30/21 03:24 Pulse Ox 96 03/30/21 03:24 Intake & Output 03/29/21 03/30/21 03/30/21 18:59 06:59 18:59 Intake Total 1532.5 / 2732.5 1200 / 2732.5 Output Total 355 / 705 350 / 705 Balance 1177.5 / 2027.5 850 / 2027.5 Intake: IV 272.5 / 1272.5 1000 / 1272.5 Lactated Ringe r's 1,000 ml @ 15 0 / 0 mls/hr IV .Q24 H LEILA Rx#: [id number] Sodium Chlorid e 0.9% 1000ML 1, 1000 / 1000 000 ml @ 100 m ls/hr IV .Q10H LE[facility] Rx#:[id number] Tranexamic Aci d / 0.7% NaCl 1, 200 / 200 000 mg In 100 ml @ 600 mls/hr IV TODAY@0600 LEILA Rx#:[id number] ceFAZolin 3000 MG 72.5 ml @ 130 72.5 / 72.5 mls/hr IV PREO P LEILA Rx#: [id number] IV Perioperative 1100 / 1100 Oral 160 / 360 200 / 360 Output: Urine 350 / 350 Estimated Blood Loss 5 / 5 Drain Output 350 / 350 Right Knee 350 / 350 Other: # Unmeasured Voi ds 1 1 Constitutional: WD/WN, vitals as above no acute distress Musculoskeletal: Right Leg: NVDI, calf SNT, negative alexander sign. DP palpable, able to wiggle toes/ankle movement without difficulty. dressing clean dry and intact. Results & Data ([facility]) Vital Signs (Past 12 Hours) Vital Signs Temp Pulse Resp BP Pulse Ox 03/30/21 03:24 36.5 C 70 18 121/76 96 03/29/21 23:47 96 03/29/21 23:38 36.7 C 74 18 126/78 87 L Laboratory Results Laboratory Results WBC 13.13 K/uL (4.8-10.8) H 03/30/21 05:39 RBC 4.45 M/uL (4.2-5.4) 03/30/21 05:39 Hgb 13.0 g/dL (12.0-16.0) 03/30/21 05:39 Hct 41.9 % (37-47) 03/30/21 05:39 Total Time Total Time Spent Total Time Spent (In Minutes): 5 Discharge Plan Discharge Items Patient Disposition: Home - Home Health Services Reason For Visit: Osteoarthritis, Right Knee Discharge Diagnosis: Right total knee replacement Activity: Per Instructions section Lifting: Wait until after follow-up appointment Weightbearing Comment: WBAT with walker Non-emergency contact: Surgeon Call non-emergency contact if: you have any medication questions, your pain is not controlled, your temperature is above 101, your wound has increased redness, your wound has increased drainage and your wound pain has increased Follow-up/Referrals: Corrine Cuevas DO [Primary Care Provider] - Diet: Regular Addtl Attending Provider Instructions: ACTIVITY RECOMMENDATIONS: SELF CARE INSTRUCTIONS AFTER TOTAL KNEE REPLACEMENT A. You may need to continue a physical therapy program after discharge from the hospital. There are several options available to you. Your doctor will assist you in selecting the best one for you. 1. An out-patient facility 2 to 3 times a week for therapy or home therapy. 2. Continue working on all exercises taught to you in the hospital. Your goals should be to increase bending of your knee to 90 degrees and beyond and to fully straighten your knee. B. You may progress at your own pace from walking with a walker or crutches to a cane; then to no assistive devices. C. Make walking a part of your daily routine. Be up as much as comfortable with rest periods throughout the day. Rest with leg elevation is very important. Use the ice wrap frequently for the first 3-4 weeks. D. There are no restrictions on activities. You may ride in a car, shop, participate in transfer knitter and all social activities. E. Wear the long elastic stockings (GUILLE hose) 20 hours a day for 2 weeks after surgery. They can be removed several times a day for laundering and for a bath. F. You may shower, no tub baths until cleared by your doctor. SPECIAL CARE INSTRUCTIONS: VERY IMPORTANT TO READ AND REVIEW A. There are a few signs you need to watch for after you are home. Call [facility] if you notice any of the followin. Increased severe knee pain. Some pain is expected especially when you exercise. 2. Increased swelling in your leg or knee; pain or swelling of the calf muscle in either lower leg. 3. Any fluid drainage from the incision. 4. Shortness of breath or chest pain. B. Please call [facility] at if you have any concerns or questions about your operation or recovery. The doctor or his nurse will return your call promptly. C. You must take antibiotics before dental work, bladder, bowel or other surgery. Your doctor will provide you with a permanent care to carry describing this precaution. IMPORTANT: * REMEMBER TO TAKE ASPIRIN, 81 MG, TWICE DAILY FOR 4 WEEKS UNLESS OTHERWISE DIRECTED. THIS IS YOUR BLOOD THINNER. * HIGH RISK PATIENTS MAY BE PRESCRIBED A STRONGER BLOOD THINNER. THIS WILL BE PROVIDED AT DISCHARGE. * CALL IF INCREASED PAIN, REDNESS, DRAINAGE OR FEVER GREATER THAT 101. * WEAR GUILLE HOSE 20 HOURS PER DAY FOR 2 WEEKS. * MELISSA Dressing- This is a large suction dressing covering your incision. This will help pull any excess drainage from the wound and allow your incision to heal properly. You may shower with this if you can keep the unit outside of the shower. If any bleeding or leakage is noted please call your doctor's office. This will remain on your incision for 7 days and then should be removed. This can be done yourself or by the home nursing staff if applicable. The entire unit is disposable once removed. Once removed, keep incision clean and dry. If redness or drainage is noted, please call your surgeon. IF INCISION IS LEAKING THROUGH DRESSING, CALL THE OFFICE . FOLLOW UP VISIT: If appointment is not already scheduled: Please call [facility] to make a follow-up appointment for 2 weeks after your surgery at . Pending Studies at Discharge: No Stand-Alone Forms: My Adisn, Smoking Cessation Medications and DC Order Prescriptions: New acetaminophen 500 mg Tablet 1,000 mg PO Q8 21 Days Qty: 126 RF: 0 oxycodone 5 mg Tablet 5 - 10 mg PO Q6H PRN (Reason: pain) Qty: 30 RF: 0 docusate sodium 100 mg Capsule 100 mg PO BID 10 Days Qty: 20 RF: 0 aspirin 81 mg tablet,delayed release (DR/EC) 81 mg PO BID 30 Days Qty: 60 RF: 0 Continued spironolactone 25 mg tablet 25 mg PO DAILY Qty: 90 RF: 1 losartan 25 mg tablet 25 mg PO DAILY Qty: 90 RF: 3 metoprolol succinate 25 mg tablet extended release 24 hr 25 mg PO BID Qty: 180 RF: 3 cephalexin 500 mg capsule 500 mg PO BID 7 Days Qty: 14 RF: 0 omeprazole 10 mg capsule,delayed release(DR/EC) 10 mg PO DAILY Qty: 30 RF: 2 vitamin E 100 unit Tablet 100 unit PO QAM RF: 0 cholecalciferol (vitamin D3) [Vitamin D3] 25 mcg (1,000 unit) Tablet 25 mcg PO QAM RF: 0 Discharge Orders: Discharge Order (Routine); Ordered 03/30/21 Ordered By: Jason Self/Other Patient Handouts: Prediabetes, 5 Steps for Eating Healthier, A1C Admission Data Admit Date/Time: 03/29/21 09:50 Attending Provider: Rodolfo Rosales Admit Provider: Rodolfo Rosales Primary Care Provider: Corrine Cuevas Other Providers: [facility],Home Healthcare Other Interventions: Discharge Summary Assessment (RN) Last Done: 03/30/21 10:22
== END 2021-03-30 12:59 | disposition home health service (06) | DRG 470 ==
LOC: 3E 05:16 → ASU 05:16 → OBSVTOIN 09:50

== ENCOUNTER 2024-02-24 12:17 | Observation (INO) ==
[2024-02-24] MEDS: KETOROLAC TROMETHAMINE 15 MG/ML VIAL IV STA (13:08)
[2024-02-24] MEDS: ONDANSETRON INJ 2 MG/ML 2 ML VIAL IV STA (13:08)
[2024-02-24] MEDS: SODIUM CHLORIDE 0.9% 500 ML IV ONE (13:08)
[2024-02-24 13:15] LABS: Basophils # (auto) 0.03 K/uL (0.00-0.20); Basophils % (auto) 0.3 %; Eosinophils # (auto) 0.04 K/uL (0.00-0.50); Eosinophils % (auto) 0.4 %; Hematocrit (blood only) 51.8 % (37.0-47.0); Hemoglobin 16.6 g/dl (12.0-16.0); Immature Granulocytes # (auto) 0.15 K/uL (0.01-0.20); Immature Granulocytes % (auto) 1.6 %; Lymphocytes % (auto) 10.4 %; Mean Corpuscular Hemoglobin 29.5 pg (25.0-34.0); Mean Platelet Volume 10.1 fL (9.4-12.4); Monocytes # (auto) 0.45 K/uL (0.11-0.59); Monocytes % (auto) 4.7 %; Neutrophils # (auto) 7.92 K/uL (1.40-6.50); Neutrophils % (auto) 82.6 %; Platelet Count 178 K/uL (130-400); RDW Coefficient of Variation 13.6 % (11.5-14.5); RDW Standard Deviation 46.2 fL (36.4-46.3); Red Blood Count 5.63 M/uL (4.20-5.40); White Blood Count 9.59 K/ul (4.8-10.8)
[2024-02-24 13:36] LABS: Albumin Level 4.7 gm/dl (3.4-5.0); BUN Creatinine Ratio 15.2 (10-20); Bilirubin Direct 0.1 mg/dl (0-0.2); Bilirubin,Total 0.6 mg/dl (0.2-1.0); Calcium 9.5 mg/dl (8.6-10.3); Creatinine Clr Calc Pharmacy 77.3 ml/min; Est GFR (African American) 75.7 ml/min; Est GFR (Non-African American) 65.3 ml/min; Potassium 4.3 mmol/L (3.5-5.1); Total Protein 7.8 gm/dl (6.0-8.3)
[2024-02-24 13:41] LABS: Partial Thromboplastin Ratio 1.2; Partial Thromboplastin Time 33 Seconds (21-31)
[2024-02-24] MEDS: OPTIRAY 320 125ml IV ONE (14:17)
[2024-02-24 14:23] LABS: Troponin I High Sensitivity 3.7 pg/ml (0-14)
--- NOTE | 2024-02-24 14:58 | CT Scan Report ---
CT ANGIOGRAM OF THE CHEST CLINICAL HISTORY: Atypical chest pain. Nausea. Left flank pain. COMPARISON STUDY: Chest x-ray dated 02/20/2021. TECHNIQUE: Following the IV administration of 118 cc of Optiray 320, CT angiogram of the chest was pe rformed from the upper abdomen to the thoracic inlet utilizing the pulmonary embolus protocol. Images are reviewed in the axial, sagittal, and coronal planes. 3-D MIPS images are created and assessed. I V contrast was administered without complication. A dose lowering technique was utilized adhering to the principles of ALARA. FINDINGS: Thyroid: Imaged portions of the thyroid gland are normal in size and attenuation. Thoracic aorta: The thoracic aorta is normal in caliber and demonstrates standard 3-vessel arch anato my. No dissection is seen. Pulmonary vasculature: The pulmonary trunk is dilated, measuring 4.2 cm in diameter. This suggests pu lmonary artery hypertension. There are no filling defects identified in main, lobar, or segmental pul monary branches to suggest pulmonary embolus. Heart: The heart is top normal in size and without pericardial effusion. Lungs and pleural spaces: Evaluation of the lung parenchyma is degraded by motion artifact. There is no airspace consolidation or pleural effusion. Dependent atelectasis is noted at the lung bases. Ther e are scattered calcified granulomas. The trachea and central airways are clear. Mediastinum: There is no mediastinal lymphadenopathy. [place]: Clear. Axillae: There is no axillary lymphadenopathy. Upper abdomen: Partially visualized upper abdominal viscera is within normal limits. Skeletal structures: The skeletal structures are osteopenic. Degenerative change is noted in the shou lders and spine. No lytic or blastic bony lesions are seen. IMPRESSION: 1. There is no evidence of pulmonary embolus in the main, lobar, or segmental pulmonary arteries. 2. The lungs are clear. 3. Additional findings as above. ACT 112: Negative or not required by law. Electronically signed by: Gregg Juan M.D. 02/24/2024 2:56 PM
--- NOTE | 2024-02-24 15:11 | CT Scan Report ---
ABDOMEN AND PELVIS CT WITHOUT CONTRAST CT DOSE: 2376.97 mGy.cm HISTORY: Acute right-sided flank pain flank pain abd pain TECHNIQUE: Multiaxial CT images of the abdomen and pelvis were performed without contrast. A dose lo wering technique was utilized adhering to the principles of ALARA. COMPARISON STUDY: None. FINDINGS: Clear lung bases. No free air. The unenhanced spleen, pancreas and adrenal glands are unrem arkable. Mildly distended gallbladder. Hepatic steatosis with hepatomegaly. Mild bilateral perinephri c stranding. There are a few renal sinus cysts noted bilaterally. 3 mm calculus of the proximal left ureter causes mild hydronephrosis. 8 x 4 x 9 mm calculus in the right ureteropelvic junction results in mild hydronephrosis. Partial distention of the urinary bladder. Hysterectomy. Unremarkable abdomin al aorta. No lymphadenopathy. No bowel obstruction or bowel wall thickening. Normal appendix. No ascites or mesenteric inflammation . Unremarkable soft tissues. No acute fracture. IMPRESSION: 1. Mild right-sided hydronephrosis secondary to an obstructing 9 mm calculus of the ureteropelvic andrea ction. 2. Mild left-sided hydronephrosis with a 3 mm calculus in the proximal left ureter. 3. Normal appendix. 4. Hepatic steatosis. ACT 112: Negative or not required by law. The above report was generated using voice recognition software. It may contain grammatical, syntax o r spelling errors. Electronically signed by: Carson Solis M.D. 02/24/2024 3:10 PM
[2024-02-24 15:42] LABS: Appearance Urine Clear (Clear); Bacteria Urine Automated None Seen (None Seen); Bilirubin Urine Negative (Negative); Blood Urine 3+ (Negative); Cast Urine Automated 0-2 /lpf (0-2); Color Urine Yellow; Glucose Urine UA Negative (Negative); Ketones Urine Negative (Negative); Leukocyte Esterase Urine 1+ (Negative); Nitrite Urine Negative (Negative); Protein Urine Negative (Negative); RBC Urine Automated >20 /hpf (0-2); Specific Gravity Urine 1.025 (1.000-1.030); Urobilinogen Urine Negative (Negative)
[2024-02-24 15:57] LABS: Influenza A virus by PCR Negative (Neg); Influenza B virus by PCR Negative (Neg); RSV by PCR Negative (Neg); SARS CoV2 RNA(COVID-19) Ceph NEGATIVE (Negative)
[2024-02-24] MEDS ORDERED: fentaNYL citrate PF 100 MCG/2 ML VIAL ONE (16:10)
[2024-02-24] MEDS ORDERED: ONDANSETRON INJ 2 MG/ML 2 ML VIAL ONE (16:10)
[2024-02-24] MEDS ORDERED: PROPOFOL IV EMULSION 10 MG/ML 20 ML VIAL IV ONE ×2 (16:10→17:14)
[2024-02-24] MEDS ORDERED: DEXAMETHASONE SOD INJ 4 MG/ML VIAL ONE ×2 (16:10→17:14)
[2024-02-24] MEDS ORDERED: MIDAZOLAM HCL 1 MG/ML 2ML VIAL ONE (16:10)
[2024-02-24] MEDS ORDERED: LIDOCAINE 2% 2 ML VIAL/AMP(20MG/ML) INFIL ONE (16:10)
[2024-02-24] MEDS ORDERED: MoRPHine SULFATE 2 MG/ML CARP IV PRN (16:16)
--- NOTE | 2024-02-24 16:17 | Urology Consultation ---
Date of Consultation February 24, 2024 Assessment & Plan (1) Hydronephrosis due to obstruction of ureter: (2) Ureteral calculus: (3) Flank pain: Plan 63yoF who presented to the ED with back and flank pain and nausea and found to have an obstructing 9 mm calculus at the right UPJ and an obstructing 3 mm calculus in the proximal left ureter. We reviewed the findings on the CT scan, specifically that she has bilateral obstructing ureteral stones. Given this, our recommendation is to proceed to the OR for cystoscopy, bilateral retrograde pyelogram and bilateral ureteral stent placement. We discussed risks and benefits of the surgery. Ureteral stents were discussed as well as postoperative issues and pain management. She is aware additional procedures will be needed for stone treatment. Patient expressed understanding and would like to proceed with surgery. Plan to proceed to the OR for cystoscopy, bilateral retrograde pyelogram, bilateral ureteral stent placement Dr. Chanel. Will cover with IV Ancef preoperatively. Keep NPO. Urology will follow. Attending note: Patient independently assessed, examined, interviewed, and evaluated. Patient's imaging was reviewed. Has bilateral obstructing stones with larger stone on right causing possibly partial obstruction with smaller but more obstructing stone on the left side. Bilateral hydronephrosis. Patient has been having acute ending of issues. Developed some shortness of breath while in the ER. Has some hypertension possibly due to pain and nausea. worse Agree with note as above. Patient's vitals and labs were all reviewed. Pertinent values in the HPI and plan section. Imaging was reviewed interpreted by myself. Agree with read. Vitals were reviewed. Discussed findings extensively with patient and family. Reviewed with nurse practitioner as well as consulting physicians/team. Patient's complicated medical and surgical history was reviewed and summarized above. Patient's surgical, medical, social, and family history were all reviewed with pertinent values as above. Hemoglobin was 16.6. Blood pressure 180/98. Pulse 82. Temp was 36.8. 100% oxygen saturation on room air however patient was placed on nasal cannula since being moved to the oxygen preoperative area. Patient's white count was 9.59. Creatinine was 0.92. All other labs and vitals were reviewed please see HPI or plan section for pertinent values. Patient's imaging has been reviewed interpreted by myself. Discussed patient's current diagnosis as well as concerns and issues. Reviewed different options moving forward. Discussed potential risks and benefits as well as possible options and concerns. Reviewed potential surgical options and interventions. Discussed potential issues and concerns related to intervention. Risk and benefits were discussed extensively with patient and any available family. Discussed potential risks related to anesthesia. Discussed risks of bleeding infection and injury. Risks and benefits discussed at length for procedure. These include bleeding, infection, injury to surrounding tissues or organs, and risks associated with anesthesia. Patient states understanding and agrees to proceed. Will sign consent and proceed. Plan for cystoscopy with bilateral stent placement. History of Present Illness History of Present Illness 63-year-old female who presented to the ED today with flank and back pain and nausea which began on Saturday. On arrival, she was afebrile and hemodynamically stable. Labs show no leukocytosis and normal renal function. Urinalysis with 3+ blood, negative nitrite, 1+ LE, 610 WBC,> 20 RBC, 35 epithelial cells, negative bacteria. CT abdomen pelvis obtained and demonstrated an obstructing 9 mm calculus at the right UPJ and obstructing 3 mm calculus in the proximal left ureter. Chest CTA with no acute findings. ED course: IVF, Toradol, Zofran. Patient being admitted to medicine service. CT abdomen pelvis- 1. Mild right-sided hydronephrosis secondary to an obstructing 9 mm calculus of the ureteropelvic junction. 2. Mild left-sided hydronephrosis with a 3 mm calculus in the proximal left ureter. 3. Normal appendix. 4. Hepatic steatosis. Patient examined at bedside in the ED. Awake, resting in bed on arrival. No acute distress. at bedside. Pain is well-controlled at present. Voiding without issue. Denies hematuria or dysuria. Denies fever. She has not had anything to eat or drink today. Denies prior urological history or history of stones. Allergies Allergy/AdvReac Type Severity Reaction Status Date / Time No Known Drug Allergies Allergy 0 Verified 02/24/24 16:29 Home Medications Medication Instructions Recorded Confirmed Type cholecalciferol (vitamin D3) 25 25 mcg PO QAM 02/06/21 02/24/24 History mcg (1,000 unit) tablet (Vitamin D3) omeprazole 20 mg capsule,delayed 20 mg PO DAILY PRN Acid Reflux 05/17/22 02/24/24 History release fluocinonide 0.05 % topical cream 1 applic topical BID PRN itching 11/23/22 02/24/24 Rx #30 grams losartan 25 mg tablet 25 mg PO DAILY #90 tabs 04/02/23 02/24/24 Rx spironolactone 25 mg tablet 25 mg PO DAILY #90 tabs 10/16/23 02/24/24 Rx metoprolol succinate 25 mg 25 mg PO BID #180 tabs 11/01/23 02/24/24 Rx tablet,extended release 24 hr meloxicam 15 mg tablet 15 mg PO DAILY PRN Pain 02/24/24 02/24/24 History Patient History Medical History Encounter for pre-operative examination Arthritis of right knee Morbid obesity Dysphagia To have EGD 02/22 at [facility] Snoring Has been sleeping in a recliner for years, unable to lay flat Glaucoma Hirsutism Fatty liver Vitamin D deficiency Hypertriglyceridemia GERD (gastroesophageal reflux disease) Hypertension Surgical History 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/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 History of tooth extraction H/O eye surgery RT/LEFT EYE "FOR GLAUCOMA" S/P dilatation and curettage History of hemorrhoidectomy Status post abdominal hysterectomy and left salpingo-oophorectomy History of ankle surgery right; no hardware History of colonoscopy Difficult airway for intubation per pt she was told by an anesthesiologist at [facility] that "she has a small airway" Family History Grandfather (Maternal) Family history of diabetes mellitus Father COPD (chronic obstructive pulmonary disease) Hypertension Grandmother (Maternal) Heart disease Myocardial infarction Brother Family history of diabetes mellitus Cancer Other Diabetes No family history of adverse response to anesthesia No family history of allergies No family history of bleeding disorder Denies family history of Ovarian cancer Prostate cancer Breast cancer Lung cancer Colorectal cancer Asthma Social History Smoking Status: Never smoker Second Hand Exposure: Yes (dad smoked); Do You Dip or Chew Tobacco: No; Hx Alcohol Use: No Hx Substance Use: No Preferred Language: Ecuadorean Communication Ability: Effective Visual Impairment: No Limitations Hearing Ability: Normal Record Label Intern Required: No Beliefs That Will Affect Care: None marital status: Current Living Situation: Spouse current occupational status: retired How many Children do You have: 2 Feels Safe at Home: Yes Childhood Exposure to Second-Hand Smoke: Yes Diet: regular Diet Comment: regular caffeine: No during the past year weight has: increased > 10 lbs Dental Care, Regularly: Yes Physical Activity Frequency: 1-2 Times per Week Seatbelt Use: always Sunscreen Use: No Assistive Devices: Walker Review of Systems Review of Systems: All systems reviewed & are unremarkable except as noted in HPI & below Physical Exam Constitutional: well developed and well nourished; no acute distress Neck: normal visual inspection Respiratory: normal respiratory effort; no respiratory distress and no labored breathing Musculoskeletal: Head/Neck/Chest: normocephalic Skin: No visible rashes or lesions to exposed skin areas Neurologic: moves all extremities and awake Psychiatric: A+Ox3, euthymic affect Results & Data Vital Signs (Past 12 Hours) Vital Signs Temp Pulse Pulse Resp BP BP Pulse Ox 02/24/24 15:00 72 20 136/63 97 02/24/24 13:59 68 18 149/75 H 97 02/24/24 13:45 85 L 02/24/24 13:10 70 18 93 02/24/24 12:56 69 18 164/102 H 95 02/24/24 12:51 73 02/24/24 12:38 36.9 C 70 18 180/97 H 92 O2 Del Method O2 Flow Rate 02/24/24 15:00 Nasal Cannula 2 02/24/24 13:59 Nasal Cannula 2 02/24/24 13:45 Room Air 02/24/24 13:10 Room Air 02/24/24 12:56 Room Air 02/24/24 12:51 02/24/24 12:38 Room Air PG Care Time/CCT Total # of Minutes Spent Total Time Spent with Patient: Total time spent is greater than 50% in coordination of care (as documented) at patient's floor/unit and/or counseling patient: Coding Level of Care Code 77278 INT INP/OBS CARE 2/55MIN Diagnoses Hydronephrosis due to obstruction of ureter N13.1 Ureteral calculus N20.1 Flank pain R10.9
--- NOTE | 2024-02-24 16:35 | History & Physical Report ---
Date of Service February 24, 2024 Assessment & Plan (1) Hydronephrosis due to obstruction of ureter: Plan: -Admit to med/tele on pulse oximetry -Currently hemodynamically stable, stable on RA, and non-toxic appearing at the time of admission -Presented to the ED for severe left-sided flank pain this am -Noted to have Mild right-sided hydronephrosis secondary to an obstructing 9 mm calculus of the ureteropelvic junction, as-well-as Mild left-sided hydronephrosis with a 3 mm calculus in the proximal left ureter. -Renal function is stable, she is without urinary symptoms or UA consistent with infection/UTI -Urology was consulted, appreciate their assistance, they will take the patient to the OR this evening/afternoon for BL ureteral stent placement -S/P 500 mL NSS in the ED, will hold additional IV fluids for now, can resume after the OR if needed -Continue pain control with scheduled tylenol/prn morphine -Will start HS Flomax tonight -Urine strainer ordered -BL SCD's for DVT with OR in the near future -Strict NPO until out of OR -AM CBC, CMP, mag (2) Hypoxia: Plan: -Patient was reported to have episodes of hypoxia with SpO2 in the mid 80's on RA -On documented case since arrival in the ED -Patient was stable on RA during my history/exam -She is in no respiratory distress, CTA of the chest was negative for acute findings -SpO2 sensor was not on the same extremity as BP cuff, patient does not have nail american or acrylic nails -Patient likely has obesity hypoventilation syndrome and possible undiagnosed EMERSON, was likely taking shallow breaths earlier due to severe pain -Will obtain Nocturnal Pulse oximetry testing overnight, however, this could be falsely positive if she receives multiple doses of morphine overnight, will need to review doses of analgesics in the am -Incentive spirometry, flutter therapy, prn O2 to keep SpO2 between 92-94% (3) Flank pain: Plan: -See hydronephrosis due to obstruction of Ureter (4) Ureteral calculus: Plan: -See hydronephrosis due to obstruction of Ureter (5) Hypertension: Plan: -Now stable after adequate pain control -Continue metoprolol and spironolactone tomorrow -Can plan to resume losartan tomorrow if BP and renal function are stable (6) GERD (gastroesophageal reflux disease): Plan: -Continue PPI Plan The patient was discussed with Dr. Alarcon at the time of the admission History of Present Illness Chief Complaint: Left sided flank pain, nausea Primary Care Provider: Corrine Cuevas DO Dias is a 63 year old female with a PMH significant for morbid obesity, HTN, and GERD who presented to the [facility] ED on 02/24/24 with complaints of left sided flank/abd pain, and nausea which started approximately 2 days ago. She was noted to be hypertensive at 180/97, and was reported to have an episode of hypoxia with SpO2 in the mid 80s on RA. Labs were significant for a CBC consistent with hemoconcentration but with WBC WNL, stable renal function, and UA with 3+ blood, 1+ leukocyte esterase, 6-10 WBC, >20 RBCs, 3-5 epithelial cells, and negative for bacterial. Ct of the abd/pelvis wo con was read as "1. Mild right-sided hydronephrosis secondary to an obstructing 9 mm calculus of the ureteropelvic junction. 2. Mild left-sided hydronephrosis with a 3 mm calculus in the proximal left ureter. 3. Normal appendix. 4. Hepatic steatosis.". CT angiogram of the chest was read as negative for acute findings. Prior to admission the patient was given 500 mL NSS, 15 mg IV toradol, 4 mg IV Zofran. At the time of the exam the patient was sitting in bed in no acute distress with her bedside, history was obtained from both. I did turn the patient's O2 off on arrival and her SpO2 remained stable on RA throughout my history and exam. She states that she has been experiencing intermittent, mild- mod left flank pain over the past month. This am she experienced 10/10, sharp/stabbing, left sided flank pain again. She had associated nausea with dry heaves but denies vomit. Due to the severity of her symptoms she presented to the ED. Denies recent fever, chills, chest pain, cough, SOB, abdominal pain, dysuria, hematuria, increased urinary frequency, diarrhea, melena, LE swelling, and recent trauma. States that she does not use home O2 and has not been tested for EMERSON. Does sleep in a recliner at home as she has never been able to sleep flat. Is a full code. Please refer to Dr. De's attestation for any changes to the treatment plan Allergies Allergy/AdvReac Type Severity Reaction Status Date / Time No Known Drug Allergies Allergy 0 Verified 02/24/24 16:29 Home Medications Medication Instructions Recorded Confirmed Type cholecalciferol (vitamin D3) 25 25 mcg PO QAM 02/06/21 02/24/24 History mcg (1,000 unit) tablet (Vitamin D3) omeprazole 20 mg capsule,delayed 20 mg PO DAILY PRN Acid Reflux 05/17/22 02/24/24 History release fluocinonide 0.05 % topical cream 1 applic topical BID PRN itching 11/23/22 02/24/24 Rx #30 grams losartan 25 mg tablet 25 mg PO DAILY #90 tabs 04/02/23 02/24/24 Rx spironolactone 25 mg tablet 25 mg PO DAILY #90 tabs 10/16/23 02/24/24 Rx metoprolol succinate 25 mg 25 mg PO BID #180 tabs 11/01/23 02/24/24 Rx tablet,extended release 24 hr meloxicam 15 mg tablet 15 mg PO DAILY PRN Pain 02/24/24 02/24/24 History Past Med/Surg History Medical History (Updated 02/24/24 @ 16:40 by Andrew Kelley MD) Encounter for pre-operative examination Arthritis of right knee Morbid obesity Dysphagia To have EGD 02/22 at [facility] Snoring Has been sleeping in a recliner for years, unable to lay flat Glaucoma Hirsutism Fatty liver Vitamin D deficiency Hypertriglyceridemia GERD (gastroesophageal reflux disease) Hypertension Surgical History 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/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 History of tooth extraction H/O eye surgery RT/LEFT EYE "FOR GLAUCOMA" S/P dilatation and curettage History of hemorrhoidectomy Status post abdominal hysterectomy and left salpingo-oophorectomy History of ankle surgery right; no hardware History of colonoscopy Difficult airway for intubation per pt she was told by an anesthesiologist at [facility] that "she has a small airway" Family History Grandfather (Maternal) Family history of diabetes mellitus Father COPD (chronic obstructive pulmonary disease) Hypertension Grandmother (Maternal) Heart disease Myocardial infarction Brother Family history of diabetes mellitus Cancer Other Diabetes No family history of adverse response to anesthesia No family history of allergies No family history of bleeding disorder Denies family history of Ovarian cancer Prostate cancer Breast cancer Lung cancer Colorectal cancer Asthma Social History Smoking Status: Never smoker Second Hand Exposure: Yes (dad smoked); Do You Dip or Chew Tobacco: No; Hx Alcohol Use: No Hx Substance Use: No Preferred Language: Greenlandic Communication Ability: Effective Visual Impairment: No Limitations Hearing Ability: Normal 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 Beliefs That Will Affect Care: None marital status: Current Living Situation: Spouse current occupational status: retired How many Children do You have: 2 Feels Safe at Home: Yes Childhood Exposure to Second-Hand Smoke: Yes Diet: regular Diet Comment: regular caffeine: No during the past year weight has: increased > 10 lbs Dental Care, Regularly: Yes Physical Activity Frequency: 1-2 Times per Week Seatbelt Use: always Sunscreen Use: No Assistive Devices: Walker Physical Exam Physical Exam: Physical Exam: General: In no acute distress, stated age, morbidly obese, non-toxic appearing HEENT: Normocephalic, atraumatic, no scleral icterus, pupils around round, symmetrical, and reactive to light, moist mucus membranes, trachea midline, no thyromegaly Chest/Pulm: No respiratory distress, symmetrical chest expansion, clear breath sounds throughout Cardiac: RRR, no murmurs noted Abdomen: Negative for ascites and bruising, normoactive bowel sounds, soft, non-tender to palpation throughout : Negative BL CVA tenderness Musculoskeletal: Symmetrical and without signs of acute trauma, upper and lower extremities with full ROM, no atrophy, spasticity, or flaccidity Extremities: Radial, dorsalis pedis, and posterior tibial pulses are intact and symmetrical, no edema noted in the BL LE's Skin: Warm, dry, no rashes , lesions, or scars noted Neuro: Alert and oriented to person, place, month, year, and president, no focal defects, no tremors noted Psych: No acute distress, calm and cooperative during the exam Results & Data Results & Data Vital Signs (Past 12 Hours) Vital Signs Temp Pulse Pulse Resp BP BP Pulse Ox 02/24/24 15:00 72 20 136/63 97 02/24/24 13:59 68 18 149/75 H 97 02/24/24 13:45 85 L 02/24/24 13:10 70 18 93 02/24/24 12:56 69 18 164/102 H 95 02/24/24 12:51 73 02/24/24 12:38 36.9 C 70 18 180/97 H 92 O2 Del Method O2 Flow Rate 02/24/24 15:00 Nasal Cannula 2 02/24/24 13:59 Nasal Cannula 2 02/24/24 13:45 Room Air 02/24/24 13:10 Room Air 02/24/24 12:56 Room Air 02/24/24 12:51 02/24/24 12:38 Room Air Laboratory Results Abnormal lab results 02/24/24 02/24/24 Range/Units 12:52 15:16 RBC 5.63 H (4.20-5.40) M/uL Hgb 16.6 H (12.0-16.0) g/dl Hct 51.8 H (37.0-47.0) % Neut # (Auto) 7.92 H (1.40-6.50) K/uL Lymph # (Auto) 1.00 L (1.20-3.40) K/uL APTT 33 H (21-31) Seconds Glucose 125 H (70-99(Fasting)) mg/dl Urine Blood 3+ H (Negative) Ur Leukocyte Esterase 1+ H (Negative) Urine WBC (Auto) 6-10 H (0-5) /hpf Urine RBC (Auto) >20 H (0-2) /hpf U Epithel Cells (Auto) 3-5 H (0-2) /hpf Diagnostic Findings Abdomen/Pelvis CT 02/24/24 13:[address] WITHOUT CONTRAST CT DOSE: 2376.97 mGy.cm HISTORY: Acute right-sided flank pain flank pain abd pain TECHNIQUE: Multiaxial CT images of the abdomen and pelvis were performed without contrast. A dose lowering technique was utilized adhering to the principles of ALARA. COMPARISON STUDY: None. FINDINGS: Clear lung bases. No free air. The unenhanced spleen, pancreas and adrenal glands are unremarkable. Mildly distended gallbladder. Hepatic steatosis with hepatomegaly. Mild bilateral perinephric stranding. There are a few renal sinus cysts noted bilaterally. 3 mm calculus of the proximal left ureter causes mild hydronephrosis. 8 x 4 x 9 mm calculus in the right ureteropelvic junction results in mild hydronephrosis. Partial distention of the urinary bladder. Hysterectomy. Unremarkable abdominal aorta. No lymphadenopathy. No bowel obstruction or bowel wall thickening. Normal appendix. No ascites or mesenteric inflammation. Unremarkable soft tissues. No acute fracture. IMPRESSION: 1. Mild right-sided hydronephrosis secondary to an obstructing 9 mm calculus of the ureteropelvic junction. 2. Mild left-sided hydronephrosis with a 3 mm calculus in the proximal left ureter. 3. Normal appendix. 4. Hepatic steatosis. ACT 112: Negative or not required by law. The above report was generated using voice recognition software. It may contain grammatical, syntax or spelling errors. Electronically signed by: Carson Solis M.D. 02/24/2024 3:10 PM Chest CTA 02/24/24 13:47 CT ANGIOGRAM OF THE CHEST CLINICAL HISTORY: Atypical chest pain. Nausea. Left flank pain. COMPARISON STUDY: Chest x-ray dated 02/20/2021. TECHNIQUE: Following the IV administration of 118 cc of Optiray 320, CT angiogram of the chest was performed from the upper abdomen to the thoracic inlet utilizing the pulmonary embolus protocol. Images are reviewed in the axial, sagittal, and coronal planes. 3-D MIPS images are created and assessed. IV contrast was administered without complication. A dose lowering technique was utilized adhering to the principles of ALARA. FINDINGS: Thyroid: Imaged portions of the thyroid gland are normal in size and attenuation. Thoracic aorta: The thoracic aorta is normal in caliber and demonstrates standard 3-vessel arch anatomy. No dissection is seen. Pulmonary vasculature: The pulmonary trunk is dilated, measuring 4.2 cm in diameter. This suggests pulmonary artery hypertension. There are no filling de fects identified in main, lobar, or segmental pulmonary branches to suggest pulmonary embolus. Heart: The heart is top normal in size and without pericardial effusion. Lungs and pleural spaces: Evaluation of the lung parenchyma is degraded by motion artifact. There is no airspace consolidation or pleural effusion. Dependent atelectasis is noted at the lung bases. There are scattered calcified granulomas. The trachea and central airways are clear. Mediastinum: There is no mediastinal lymphadenopathy. [place]: Clear. Axillae: There is no axillary lymphadenopathy. Upper abdomen: Partially visualized upper abdominal viscera is within normal limits. Skeletal structures: The skeletal structures are osteopenic. Degenerative change is noted in the shoulders and spine. No lytic or blastic bony lesions are seen. IMPRESSION: 1. There is no evidence of pulmonary embolus in the main, lobar, or segmental pulmonary arteries. 2. The lungs are clear. 3. Additional findings as above. ACT 112: Negative or not required by law. Electronically signed by: Gregg Juan M.D. 02/24/2024 2:56 PM ECG Additional Comments: Normal sinus rhythm Nonspecific T wave abnormality Abnormal ECG When compared with ECG of 20-FEB-2021 11:51, T wave inversion now evident in Inferior leads T wave inversion now evident in Anterior leads Code Status & VTE Plan Code Status Full code VTE Prophylaxis Plan VTE Prophylaxis will be ordered: Yes Supervising Physician Co-Signing Physician Notes I have personally seen, evaluated and examined the patient. I have also personally discussed the management of the patient with the resident physician/LILIANA and I agree with the exam findings documented in the history and physical examination and the documented assessment and plan unless otherwise stated below. Brief Exam: In general very pleasant 63-year-old female who is alert and oriented x 3 at the time of my exam. She is accompanied by her , Jamshid, at the time of my examination whom she granted permission to remain in the exam room during my interview and examination. She interacts appropriately and pleasantly and her pain is well-controlled at this time. HEENT: Normocephalic atraumatic. Heart: Regular rate and rhythm no murmur or ectopy or rub. Lungs: Diminished but clear. Abdomen: Obese soft nontender. Remaining abdominal exam is somewhat equivocal given her body habitus. Extremities: Intact no significant edema. Neurological: Alert and oriented x 3 with no focal deficit. Assessment/plan: As described above. Please refer to orders for further planning. In addition the patient has discussed with the primary care physician about the possibility of obstructive sleep apnea. Per the clinical history the patient sleeps in a recliner she cannot lay flat. She has loud snores respirations according to her . Clinically it does appear she probably has sleep apnea perhaps explaining the 1 episode of hypoxemia here today. We do recommend prompt outpatient follow-up and testing and evaluation for sleep apnea upon discharge. PG Care Time/CCT Total # of Minutes Spent Total Time Spent with Patient: Total time spent is greater than 50% in coordination of care (as documented) at patient's floor/unit and/or counseling patient: [place] [address] INT INP/OBS CARE 3/75MIN Patient Type Established Medical Decision Making High Complexity Diagnoses Hydronephrosis due to obstruction of ureter N13.1 Hypoxia R09.02 Flank pain R10.9 Ureteral calculus N20.1 Hypertension I10 GERD (gastroesophageal reflux disease) K21.9
--- NOTE | 2024-02-24 16:41 | Anesthesiology Consultation ---
Date of Service February 24, 2024 Assessment & Plan (1) Encounter for pre-operative examination: Chart Review Chart Review: Acceptable Risk for Surgery and Patient NOT seen in Pre Admission Testing Consults Requested none History Surgery Operation Date: 02/24/24 12:05 Proposed Procedures p Cystoscopy, Bilateral Stent Placement - Sami Chanel DO Height/Weight Height: 5 ft 3 in Weight: 122.1 kg Allergies Allergy/AdvReac Type Severity Reaction Status Date / Time No Known Drug Allergies Allergy 0 Verified 02/24/24 16:29 Medications Home Medications Medication Instructions Recorded Confirmed Last Taken cholecalciferol (vitamin D3) 25 25 mcg PO QAM 02/06/21 02/24/24 02/21/21 mcg (1,000 unit) tablet (Vitamin D3) omeprazole 20 mg capsule,delayed 20 mg PO DAILY PRN Acid Reflux 05/17/22 02/24/24 Unknown release fluocinonide 0.05 % topical cream 1 applic topical BID PRN itching 11/23/22 02/24/24 Unknown #30 grams losartan 25 mg tablet 25 mg PO DAILY #90 tabs 04/02/23 02/24/24 Unknown spironolactone 25 mg tablet 25 mg PO DAILY #90 tabs 10/16/23 02/24/24 Unknown metoprolol succinate 25 mg 25 mg PO BID #180 tabs 11/01/23 02/24/24 Unknown tablet,extended release 24 hr meloxicam 15 mg tablet 15 mg PO DAILY PRN Pain 02/24/24 02/24/24 Unknown Past Medical History Medical History (Updated 02/24/24 @ 16:40 by Andrew Kelley MD) Encounter for pre-operative examination Arthritis of right knee Morbid obesity Dysphagia To have EGD 02/22 at [facility] Snoring Has been sleeping in a recliner for years, unable to lay flat Glaucoma Hirsutism Fatty liver Vitamin D deficiency Hypertriglyceridemia GERD (gastroesophageal reflux disease) Hypertension Exercise / Class Metabolic Activity II 4-5 Yardwork/Stairs/Walk up hill Past Family History Family History Grandfather (Maternal) Family history of diabetes mellitus Father COPD (chronic obstructive pulmonary disease) Hypertension Grandmother (Maternal) Heart disease Myocardial infarction Brother Family history of diabetes mellitus Cancer Other Diabetes No family history of adverse response to anesthesia No family history of allergies No family history of bleeding disorder Denies family history of Ovarian cancer Prostate cancer Breast cancer Lung cancer Colorectal cancer Asthma Past Surgical History Surgical History 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/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 History of tooth extraction H/O eye surgery RT/LEFT EYE "FOR GLAUCOMA" S/P dilatation and curettage History of hemorrhoidectomy Status post abdominal hysterectomy and left salpingo-oophorectomy History of ankle surgery right; no hardware History of colonoscopy Difficult airway for intubation per pt she was told by an anesthesiologist at [facility] that "she has a small airway" Past Anesthesia History No Hx of Anesthesia Complications and No Family Hx of Anesthesia Complications History of PONV No Hx of PONV and No Hx of Motion Sickness Social History Smoking Status: Never smoker Do You Dip or Chew Tobacco: No Hx Alcohol Use: No Hx Substance Use: No substance use type: does not use Physical Exam Vital Signs Last Vital Signs Temp 36.9 C 02/24/24 12:38 Pulse 72 02/24/24 15:00 Resp 20 02/24/24 15:00 BP 136/63 02/24/24 15:00 Pulse Ox 97 02/24/24 15:00 O2 Del Method Nasal Cannula 02/24/24 15:00 O2 Flow Rate 2 02/24/24 15:00 Testing Laboratory Results 02/24/24 12:52 02/24/24 12:52 PT 11.0 Seconds (9.0-12.0) 02/24/24 12:52 INR 1.0 (0.9-1.1) 02/24/24 12:52 APTT 33 Seconds (21-31) H 02/24/24 12:52 Urine Color Yellow 02/24/24 15:16 Urine Appearance Clear (Clear) 02/24/24 15:16 Urine pH 7.0 (4.5-7.5) 02/24/24 15:16 Ur Specific Salol 1.025 (1.000-1.030) 02/24/24 15:16 Urine Protein Negative (Negative) 02/24/24 15:16 Urine Glucose (UA) Negative (Negative) 02/24/24 15:16 Urine Ketones Negative (Negative) 02/24/24 15:16 Urine Nitrite Negative (Negative) 02/24/24 15:16 Ur Leukocyte Esterase 1+ (Negative) H 02/24/24 15:16 Urine WBC (Auto) 6-10 /hpf (0-5) H 02/24/24 15:16 Urine RBC (Auto) >20 /hpf (0-2) H 02/24/24 15:16 U Hyaline Cast (Auto) 0-2 /lpf (0-2) 02/24/24 15:16 U Epithel Cells (Auto) 3-5 /hpf (0-2) H 02/24/24 15:16 Urine Bacteria (Auto) None Seen (None Seen) 02/24/24 15:16 Electrocardiogram Date: 02/24/24 Findings: + NSR @
[2024-02-24] MEDS ORDERED: fentaNYL citrate PF 100 MCG/2 ML VIAL IV PRN (16:50)
[2024-02-24] MEDS ORDERED: ePHEDrine sulfate 50 MG/ML AMP IV PRN (16:50)
[2024-02-24] MEDS ORDERED: ATROPINE SULFATE 0.1 MG/ML 10ML SYR IV PRN (16:50)
[2024-02-24] MEDS ORDERED: ONDANSETRON INJ 2 MG/ML 2 ML VIAL IV PRN (16:50)
[2024-02-24] MEDS: ceFAZolin 2000MG 2,000 MG/15 ML SYR IV ONE (16:58)
[2024-02-24] MEDS: DIATRIZOATE MEGLUMINE 30% 100ML VIAL INSTIL PRN (17:22)
--- NOTE | 2024-02-24 17:25 | Operative Report ---
PG Post Operative Report Pre & Post Diagnosis Bilateral Obstructing stones Same Operation Date: 02/24/24 12:05 <No data on this case meets the specified criteria> I identified the patient and participated in the time-out.: Yes Procedure Cystoscopy with bilateral retrograde pyelogram and bilateral stent placement Operation Date: 02/24/24 12:05 <No data on this case meets the specified criteria> Surgeon Sami Chanel, II, DO Loan Associate None Estimated Blood Loss 1 Findings Consistent with Post-Op Diagnosis Persistent contrast on the right likely from CTA earlier today with Obstruction Bilateral hydronephrosis. Moderate inflammation of the bladder. Stents placed in good position. Specimens None Drains 4.8 Fr x 24 bilateral Anesthesia Type MAC Complications none Disposition Disposition: Recovery Room Indications Patient with obstruction with bilateral stones and hydronephrosis. Risks and benefits discussed at length. Description of Procedure Patient was consented and brought back to the operating room. Patient was placed under anesthesia in the supine position and moved to the dorsal lithotomy position. Patient was prepped and draped in the regular sterile fashion. A time out was completed. A 30degree Cystoscope was placed into the bladder and the entire bladder was examined. The UO's were identified. Moderate inflammation was noted in the bladder. On fluoroscopy the right renal pelvis had retained contrast. Starting on the right, the UO was cannulized with a catheter and a retrograde pyelogram was completed. A wire was then placed. With the wire in place, a 4.8 Fr Double J stent was placed. It was confirmed with fluoroscopy. Next on the left, the UO was cannulized and a retrograde completed. A wire was placed and a 4.8 Fr Double J stent was placed. It was confirmed with fluoroscopy. With the stents in place, the bladder was emptied. The scope was removed. The patient was cleaned, aroused from anesthesia, and transferred to the pacu in stable condition having tolerated the procedure well with no complications. I was present and participated in all aspects of the procedure. The patient will be monitored in the PACU until transferred. Plan to monitor with possible intervention on stones in 1-2 weeks depending on how patient improves. Monitor for other issues. Will observe with Hospitalist due to respiratory issues and bilateral obstruction. I attest to the content of the Intraoperative Record and any orders documented therein. Any exceptions are noted below.
--- NOTE | 2024-02-24 17:35 | Fluoroscopy Report ---
INTRAOPERATIVE RADIOGRAPHS CLINICAL HISTORY: Bilateral ureteral stent placement. Fluoro time: 34 seconds Ka,r: 22.60 mGy FINDINGS: 5 spot fluoroscopic views of the abdomen are correlated with abdominal CT performed the 02/24/2024. Contrast within the renal collecting systems shows fullness of the left renal collec ting system. No hydronephrosis is seen on the right. Bilateral ureteral stents are placed and imaged portions appear appropriately positioned. IMPRESSION: Intraoperative images from bilateral ureteral stent placement as above. Electronically signed by: Gregg Juan M.D. 02/24/2024 5:34 PM
--- NOTE | 2024-02-24 18:25 | Anesthesiology Progress Note ---
Date of Service February 24, 2024 Anesthesia Post Procedure Vital Signs Vital Signs: Temp Pulse Pulse Pulse Resp BP BP 02/24/24 18:10 36.4 C L 81 18 170/88 H 02/24/24 18:10 02/24/24 17:55 88 20 167/101 H 02/24/24 17:45 37.0 C 86 16 148/99 H 02/24/24 17:35 80 15 166/99 H 02/24/24 17:25 36.3 C L 86 16 147/97 H 02/24/24 16:35 36.8 C 82 18 180/98 H 02/24/24 15:00 72 20 136/63 02/24/24 13:59 68 18 149/75 H 02/24/24 13:45 02/24/24 13:10 70 18 02/24/24 12:56 69 18 164/102 H 02/24/24 12:51 73 02/24/24 12:38 36.9 C 70 18 180/97 H Pulse Ox Pulse Ox O2 Del Method O2 Del Method O2 Flow Rate O2 Flow Rate 02/24/24 18:10 90 Room Air 02/24/24 18:10 90 Room Air 0 02/24/24 17:55 94 Room Air 02/24/24 17:45 95 Room Air 02/24/24 17:35 100 Oxymask 4 02/24/24 17:25 100 Oxymask 6 02/24/24 16:35 100 Room Air 02/24/24 15:00 97 Nasal Cannula 2 02/24/24 13:59 97 Nasal Cannula 2 02/24/24 13:45 85 L Room Air 02/24/24 13:10 93 Room Air 02/24/24 12:56 95 Room Air 02/24/24 12:51 02/24/24 12:38 92 Room Air Pain Intensity Left Medial Back: Pain Intensity: 7 Transfer of Care Handoff Completed per policy Notes Mental Status: alert / awake / arousable and participated in evaluation Patient Amnestic to Procedure: Yes Nausea / Vomiting: adequately controlled Pain: adequately controlled Airway Patency, RR, SpO2: stable & adequate BP & HR: stable & adequate Hydration State: stable & adequate Anesthetic Complications: no major complications apparent and Pt Satisfied with anesthetic care
[2024-02-24] MEDS: ACETAMINOPHEN 1,000 MG/100 ML VIAL IV STA (18:45)
[2024-02-24] MEDS: ACETAMINOPHEN 1000 MG/100 ML IV IV ONE (18:48)
--- NOTE | 2024-02-24 20:05 | Emergency Department Note ---
History of Present Illness General Chief Complaint: Back Injury/Pain Stated Complaint: BACK PAIN/STOMACH PAIN/NAUSEATED Time Seen by Provider: 02/24/24 12:47 History of Present Illness Provider Complaint: abdominal pain and flank pain Onset (ago): 1 day(s) Pain Consistency: constant Location: L flank and R flank Radiation: LLQ and RLQ Maximum Pain Intensity: 0 Quality: + stabbing and + sharp Relieved By: + nothing Exacerbated By: + nothing Context: no foreign travel, no possible food poisoning, no sick contacts, no recent antibiotic use, no recent surgery/procedure or no recent injury Associated Symptoms: + nausea and + vomiting; no diarrhea, no fever, no chills, no constipation, no dysuria, no hematemesis, no hematochezia, no melena, no hematuria, no syncope, no chest pain and no breathing difficulty Home Medications Medication Instructions Recorded Confirmed Type cholecalciferol (vitamin D3) 25 25 mcg PO QAM 02/06/21 02/24/24 History mcg (1,000 unit) tablet (Vitamin D3) omeprazole 20 mg capsule,delayed 20 mg PO DAILY PRN Acid Reflux 05/17/22 02/24/24 History release fluocinonide 0.05 % topical cream 1 applic topical BID PRN itching 11/23/22 02/24/24 Rx #30 grams losartan 25 mg tablet 25 mg PO DAILY #90 tabs 04/02/23 02/24/24 Rx spironolactone 25 mg tablet 25 mg PO DAILY #90 tabs 10/16/23 02/24/24 Rx metoprolol succinate 25 mg 25 mg PO BID #180 tabs 11/01/23 02/24/24 Rx tablet,extended release 24 hr meloxicam 15 mg tablet 15 mg PO DAILY PRN Pain 02/24/24 02/24/24 History Allergies Allergy/AdvReac Type Severity Reaction Status Date / Time No Known Drug Allergies Allergy 0 Verified 02/24/24 16:29 Past Med/Surg History Medical History Encounter for pre-operative examination Arthritis of right knee Morbid obesity Dysphagia To have EGD 02/22 at [facility] Snoring Has been sleeping in a recliner for years, unable to lay flat Glaucoma Hirsutism Fatty liver Vitamin D deficiency Hypertriglyceridemia GERD (gastroesophageal reflux disease) Hypertension Surgical History 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/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 History of tooth extraction H/O eye surgery RT/LEFT EYE "FOR GLAUCOMA" S/P dilatation and curettage History of hemorrhoidectomy Status post abdominal hysterectomy and left salpingo-oophorectomy History of ankle surgery right; no hardware History of colonoscopy Difficult airway for intubation per pt she was told by an anesthesiologist at [facility] that "she has a small airway" Family History Grandfather (Maternal) Family history of diabetes mellitus Father COPD (chronic obstructive pulmonary disease) Hypertension Grandmother (Maternal) Heart disease Myocardial infarction Brother Family history of diabetes mellitus Cancer Other Diabetes No family history of adverse response to anesthesia No family history of allergies No family history of bleeding disorder Denies family history of Ovarian cancer Prostate cancer Breast cancer Lung cancer Colorectal cancer Asthma Social History Smoking Status: Never smoker Second Hand Exposure: Yes (dad smoked); Do You Dip or Chew Tobacco: No; Hx Alcohol Use: No Hx Substance Use: No Preferred Language: Maori Communication Ability: Effective Visual Impairment: No Limitations Hearing Ability: Normal Manager Transportation Required: No Beliefs That Will Affect Care: None marital status: Current Living Situation: Spouse current occupational status: retired How many Children do You have: 2 Feels Safe at Home: Yes Safety Concerns: Feels Safe At This Time Childhood Exposure to Second-Hand Smoke: Yes Diet: regular Diet Comment: regular caffeine: No during the past year weight has: increased > 10 lbs Dental Care, Regularly: Yes Physical Activity Frequency: 1-2 Times per Week Seatbelt Use: always Sunscreen Use: No Assistive Devices: Walker Physical Exam 2 Vital Signs: Vital Signs - 24 hr 02/24/24 12:38 02/24/24 12:51 02/24/24 12:56 Temperature 36.9 C Temperature Source Temporal Artery Sc an Pulse Rate 70 73 Pulse Rate [Right Finger] 69 Pulse Rhythm [Righ t Finger] Pulse Strength [Ri ght Finger] Respiratory Rate 18 18 Respiratory Effort / Characteristics Non-Labored Sponta neous Respiratory Depth Normal Respiratory Patter n Blood Pressure 180/97 H Blood Pressure [Le ft Arm] 164/102 H Blood Pressure Jenn n 124 Blood Pressure Jenn n [Left Arm] 122 Blood Pressure Pos ition Sitting Blood Pressure Pos ition [Left Arm] Pulse Oximetry 92 95 Oxygen Delivery Me thod Room Air Room Air Oxygen Flow Rate Sepsis Recent Feve r Within 48 Hours No Sepsis New/Unexpla ined Change in Men tamanna Status N/A Sepsis Action Take n by Nursing No Action Required Oxygen Flow Rate - Titration Pulse Oximetry Pos t Tiitration 02/24/24 13:10 02/24/24 13:45 02/24/24 13:59 Temperature Temperature Source Pulse Rate 70 Pulse Rate [Right Finger] 68 Pulse Rhythm [Righ t Finger] Pulse Strength [Ri ght Finger] Respiratory Rate 18 18 Respiratory Effort / Characteristics Non-Labored Sponta neous Respiratory Depth Normal Respiratory Patter n Blood Pressure Blood Pressure [Le ft Arm] 149/75 H Blood Pressure Jenn n Blood Pressure Jenn n [Left Arm] 99 Blood Pressure Pos ition Blood Pressure Pos ition [Left Arm] Pulse Oximetry 93 85 L 97 Oxygen Delivery Me thod Room Air Room Air Nasal Cannula Oxygen Flow Rate 2 Sepsis Recent Feve r Within 48 Hours Sepsis New/Unexpla ined Change in Men tamanna Status Sepsis Action Take n by Nursing Oxygen Flow Rate - Titration 2 Pulse Oximetry Pos t Tiitration 96 02/24/24 15:00 Temperature Temperature Source Pulse Rate Pulse Rate [Right Finger] 72 Pulse Rhythm [Righ t Finger] Regular Pulse Strength [Ri ght Finger] Normal Respiratory Rate 20 Respiratory Effort / Characteristics Non-Labored Sponta neous Respiratory Depth Normal Respiratory Patter n Regular Blood Pressure Blood Pressure [Le ft Arm] 136/63 Blood Pressure Jenn n Blood Pressure Jenn n [Left Arm] 87 Blood Pressure Pos ition Blood Pressure Pos ition [Left Arm] Lying Pulse Oximetry 97 Oxygen Delivery Me thod Nasal Cannula Oxygen Flow Rate 2 Sepsis Recent Feve r Within 48 Hours Sepsis New/Unexpla ined Change in Men tamanna Status Sepsis Action Take n by Nursing Oxygen Flow Rate - Titration Pulse Oximetry Pos t Tiitration Physical Exam: Physical Exam GENERAL: She is oriented to person, place, and time. She appears well-developed and well-nourished. She does not appear distressed. HENT: Exam performed. -Head: Normocephalic and atraumatic. -Right Ear: External ear normal. No mastoid erythema -Left Ear: External ear normal. No mastoid erythema -Mouth/Throat: The oropharynx is clear and moist. No trismus in the jaw. No dental abscesses or uvula swelling. No oropharyngeal exudate or tonsillar abscesses. EYES: Conjunctivae and EOM are normal.Right eye exhibits no discharge. Left eye exhibits no discharge. No scleral icterus. NECK: Normal range of motion. Neck supple. No JVD present. No tracheal deviation and normal range of motion present. CV: Normal rate, regular rhythm, normal heart sounds and intact distal pulses. There is no peripheral edema. Palpable radial pulses bue. PULM/CHEST: Effort normal and breath sounds normal. No respiratory distress. No stridor. She has no wheezes. She has no rales. -Chest Wall: She exhibits no tenderness. ABD: The abdomen is soft and obese. Bowel sounds are normal. She has no distension. No mass is present. There is no tenderness. There is no rebound, no guarding, no Guzman's sign and no tenderness at McBurney's point. Rovsig negative. Bilateral CVA tenderness. MUSC/SKEL: Normal range of motion. There is no peripheral edema, tenderness or deformity. NEURO: Motor and sensation grossly intact. SKIN: Skin is warm and dry. She is not diaphoretic. PSYCH: She has a normal mood and affect. Behavior is normal. Judgment and thought content normal. Course Course 1247: The patient was evaluated in room C8. A complete history and physical exam was performed Cardiac monitoring: An order was placed for continuous cardiac monitoring. The monitor shows a rate of 70 with sinus rhythm interpreted by me 1345: Nursing informed me that the patient became hypoxic with a good waveform. Supplemental oxygen via nasal cannula was applied to the patient which improved direction saturation. CTA of the chest added in addition to the already planned CT of the abdomen pelvis to make sure the patient does not have any pulmonary emboli causing her pain and hypoxia. 1545: Vital signs stable supplemental oxygen via nasal cannula. Labs within normal limits. Imaging shows no pulmonary emboli. Imaging of the M pelvis shows bilateral ureteral calculi on the right 9 mm and on the left 3 mm both causing some hydronephrosis. Discussed the case with Adelina CUENCA for Dr. Chanel. She states that the patient will most likely be taken for stents. Patient be admitted to the [facility] [place] [facility] team Karen mason. Administered Medications Diatrizoate Meglumine (Diatrizoate Meglumine 30% 100ml Vial) 100 ml INSTIL UD PRN PRN Reason: Radiology Use Stop: 02/28/24 17:15 Last Admin: 02/24/24 17:22 Dose: 40 ml Documented By: [id number] Discontinued Medications Acetaminophen (Acetaminophen 1000 Mg/100 Ml Iv) Confirm Administered Dose 1,000 mg IV .STK-MED ONE Stop: 02/24/24 18:45 Last Admin: 02/24/24 18:48 Dose: Not Given Documented By: TRACY Sodium Chloride (Nss) 500 mls @ 999 mls/hr IV .Q31M ONE Stop: 02/24/24 13:31 Last Infusion: 02/24/24 13:51 Dose: Infused Documented By: Admin: 02/24/24 13:08 Dose: 999 mls/hr Documented By: CLAUDIA Acetaminophen (Ofirmev) 1,000 mg in 100 mls @ 400 mls/hr IV NOW STA Stop: 02/24/24 16:29 Last Infusion: 02/24/24 19:00 Dose: Infused Documented By: Admin: 02/24/24 18:45 Dose: 400 mls/hr Documented By: TRACY Cefazolin Sodium (Ancef 2000mg) 2,000 mg in 15 mls @ 3.75 mls/min IV PREOP ONE; Protocol Stop: 02/24/24 16:25 Last Admin: 02/24/24 16:58 Dose: 3.75 mls/min Documented By: [id number] Ioversol (Optiray 320 125ml) 118 ml IV ONCE ONE Stop: 02/24/24 14:16 Last Admin: 02/24/24 14:17 Dose: 118 ml Documented By: MARLINE Ketorolac Tromethamine (Ketorolac Tromethamine 15 Mg/Ml Vial) 15 mg IV NOW STA Stop: 02/24/24 13:02 Last Admin: 02/24/24 13:08 Dose: 15 mg Documented By: CLAUDIA Ondansetron HCl (Ondansetron Inj 2 Mg/Ml 2 Ml Vial) 4 mg IV NOW STA Stop: 02/24/24 13:02 Last Admin: 02/24/24 13:08 Dose: 4 mg Documented By: CLAUDIA Medical Decision Making Laboratory Data Attestation: I reviewed the patient's lab results. 02/24/24 12:52 02/24/24 12:52 Lab Results 02/24/24 02/24/24 02/24/24 Range/Units 12:52 15:08 15:16 WBC 9.59 (4.8-10.8) K/ul RBC 5.63 H (4.20-5.40) M/uL Hgb 16.6 H (12.0-16.0) g/dl Hct 51.8 H (37.0-47.0) % MCV 92.0 (80.0-100.0) fL MCH 29.5 (25.0-34.0) pg MCHC 32.0 (32.0-36.0) g/dL RDW Std Deviation 46.2 (36.4-46.3) fL RDW Coeff of Noreen 13.6 (11.5-14.5) % Plt Count 178 (130-400) K/uL MPV 10.1 (9.4-12.4) fL Immature Gran % (Auto) 1.6 % Neut % (Auto) 82.6 % Lymph % (Auto) 10.4 % [place] % (Auto) 4.7 % Eos % (Auto) 0.4 % Baso % (Auto) 0.3 % Neut # (Auto) 7.92 H (1.40-6.50) K/uL Lymph # (Auto) 1.00 L (1.20-3.40) K/uL [place] # (Auto) 0.45 (0.11-0.59) K/uL Eos # (Auto) 0.04 (0.00-0.50) K/uL Baso # (Auto) 0.03 (0.00-0.20) K/uL Immature Gran # (Auto) 0.15 (0.01-0.20) K/uL PT 11.0 (9.0-12.0) Seconds INR 1.0 (0.9-1.1) APTT 33 H (21-31) Seconds PTT Ratio 1.2 Sodium 141 (136-145) mmol/L Potassium 4.3 (3.5-5.1) mmol/L Chloride 102 (98-107) mmol/L Carbon Dioxide 31 (21-32) mmol/L Anion Gap 8 (3-11) BUN 14 (6-23) mg/dl Creatinine 0.92 (0.6-1.2) mg/dl Est Cr Clr Drug Dosing 77.3 ml/min Est GFR ( Amer) 75.7 ml/min Est GFR (Non-Af Amer) 65.3 ml/min BUN/Creatinine Ratio 15.2 (10-20) Glucose 125 H (70-99(Fasting)) mg/dl Calcium 9.5 (8.6-10.3) mg/dl Total Bilirubin 0.6 (0.2-1.0) mg/dl Direct Bilirubin 0.1 (0-0.2) mg/dl AST 35 (13-39) U/L ALT 47 (7-52) U/L Alkaline Phosphatase 68 (34-104) U/L Troponin I High Sens 3.7 (0-14) pg/ml Total Protein 7.8 (6.0-8.3) gm/dl Albumin 4.7 (3.4-5.0) gm/dl Lipase 14 (11-82) U/L Urine Color Yellow Urine Appearance Clear (Clear) Urine pH 7.0 (4.5-7.5) Ur Specific Mcdonald 1.025 (1.000-1.030) Urine Protein Negative (Negative) Urine Glucose (UA) Negative (Negative) Urine Ketones Negative (Negative) Urine Blood 3+ H (Negative) Urine Nitrite Negative (Negative) Urine Bilirubin Negative (Negative) Urine Urobilinogen Negative (Negative) Ur Leukocyte Esterase 1+ H (Negative) Urine WBC (Auto) 6-10 H (0-5) /hpf Urine RBC (Auto) >20 H (0-2) /hpf U Hyaline Cast (Auto) 0-2 (0-2) /lpf U Epithel Cells (Auto) 3-5 H (0-2) /hpf Urine Bacteria (Auto) None Seen (None Seen) SARS-CoV-2 (PCR) NEGATIVE (Negative) Influenza Type A (PCR) Negative (Neg) Influenza Type B (PCR) Negative (Neg) RSV (RT-PCR) Negative (Neg) Imaging Data Radiologist's Impression: Abdomen/Pelvis CT 02/24/24 13:[address] WITHOUT CONTRAST CT DOSE: 2376.97 mGy.cm HISTORY: Acute right-sided flank pain flank pain abd pain TECHNIQUE: Multiaxial CT images of the abdomen and pelvis were performed without contrast. A dose lowering technique was utilized adhering to the principles of ALARA. COMPARISON STUDY: None. FINDINGS: Clear lung bases. No free air. The unenhanced spleen, pancreas and adrenal glands are unremarkable. Mildly distended gallbladder. Hepatic steatosis with hepatomegaly. Mild bilateral perinephric stranding. There are a few renal sinus cysts noted bilaterally. 3 mm calculus of the proximal left ureter causes mild hydronephrosis. 8 x 4 x 9 mm calculus in the right ureteropelvic junction results in mild hydronephrosis. Partial distention of the urinary bladder. Hysterectomy. Unremarkable abdominal aorta. No lymphadenopathy. No bowel obstruction or bowel wall thickening. Normal appendix. No ascites or mesenteric inflammation. Unremarkable soft tissues. No acute fracture. IMPRESSION: 1. Mild right-sided hydronephrosis secondary to an obstructing 9 mm calculus of the ureteropelvic junction. 2. Mild left-sided hydronephrosis with a 3 mm calculus in the proximal left ureter. 3. Normal appendix. 4. Hepatic steatosis. ACT 112: Negative or not required by law. The above report was generated using voice recognition software. It may contain grammatical, syntax or spelling errors. Electronically signed by: Carson Solis M.D. 02/24/2024 3:10 PM Chest CTA 02/24/24 13:47 CT ANGIOGRAM OF THE CHEST CLINICAL HISTORY: Atypical chest pain. Nausea. Left flank pain. COMPARISON STUDY: Chest x-ray dated 02/20/2021. TECHNIQUE: Following the IV administration of 118 cc of Optiray 320, CT angiogram of the chest was performed from the upper abdomen to the thoracic inlet utilizing the pulmonary embolus protocol. Images are reviewed in the axial, sagittal, and coronal planes. 3-D MIPS images are created and assessed. IV contrast was administered without complication. A dose lowering technique was utilized adhering to the principles of ALARA. FINDINGS: Thyroid: Imaged portions of the thyroid gland are normal in size and attenuation. Thoracic aorta: The thoracic aorta is normal in caliber and demonstrates standard 3-vessel arch anatomy. No dissection is seen. Pulmonary vasculature: The pulmonary trunk is dilated, measuring 4.2 cm in diameter. This suggests pulmonary artery hypertension. There are no filling defects identified in main, lobar, or segmental pulmonary branches to suggest pulmonary embolus. Heart: The heart is top normal in size and without pericardial effusion. Lungs and pleural spaces: Evaluation of the lung parenchyma is degraded by motion artifact. There is no airspace consolidation or pleural effusion. Dependent atelectasis is noted at the lung bases. There are scattered calcified granulomas. The trachea and central airways are clear. Mediastinum: There is no mediastinal lymphadenopathy. [place]: Clear. Axillae: There is no axillary lymphadenopathy. Upper abdomen: Partially visualized upper abdominal viscera is within normal limits. Skeletal structures: The skeletal structures are osteopenic. Degenerative change is noted in the shoulders and spine. No lytic or blastic bony lesions are seen. IMPRESSION: 1. There is no evidence of pulmonary embolus in the main, lobar, or segmental pulmonary arteries. 2. The lungs are clear. 3. Additional findings as above. ACT 112: Negative or not required by law. Electronically signed by: Gregg Juan M.D. 02/24/2024 2:56 PM ECG Data Attestation: I personally reviewed and interpreted this ECG as follows: Rate (beats per minute): 66 Rhythm: normal sinus Findings: no ST depression, no ST elevation or no prolonged QT MDM Narrative 1247: The patient was evaluated in room C8. A complete history and physical exam was performed Cardiac monitoring: An order was placed for continuous cardiac monitoring. The monitor shows a rate of 70 with sinus rhythm interpreted by me 1345: Nursing informed me that the patient became hypoxic with a good waveform. Supplemental oxygen via nasal cannula was applied to the patient which improved direction saturation. CTA of the chest added in addition to the already planned CT of the abdomen pelvis to make sure the patient does not have any pulmonary emboli causing her pain and hypoxia. 1545: Vital signs stable supplemental oxygen via nasal cannula. Labs within normal limits. Imaging shows no pulmonary emboli. Imaging of the M pelvis shows bilateral ureteral calculi on the right 9 mm and on the left 3 mm both causing some hydronephrosis. Discussed the case with Adelina CUENCA for Dr. Chanel. She states that the patient will most likely be taken for stents. Patient be admitted to the [facility] [place] [facility] team Karen mason. Impression & Plan Hydronephrosis with renal and ureteral calculous obstruction, Hypoxia Critical Care Time Critical Care Time: Yes Total Critical Care Time: 40 I have personally spent greater than 40 minutes of critical care time in the direct management of this patient. This includes bedside care, interpretation of diagnostic studies, and testing, discussion with consultants, patient, and family members, and other required patient management activities. This 40 minutes is in excess of all separately billable procedures. Discharge Plan Visit Data Chief Complaint: Back Injury/Pain Stated Complaint: BACK PAIN/STOMACH PAIN/NAUSEATED ED Provider: Angel Gordillo Discharge Problem: Hydronephrosis with renal and ureteral calculous obstruction, Hypoxia Patient Disposition: Admitted As Inpatient Discharge Instructions Interventions: ED Discharge Assessment Last Done: 02/24/24 17:42
[2024-02-24] MEDS: TAMSULOSIN HCL 0.4 MG CAP PO SCH (20:21)
[2024-02-24] MEDS: ACETAMINOPHEN 325 MG TAB PO SCH (21:46)
[2024-02-25 06:40] LABS: Hematocrit (blood only) 47.9 % (37.0-47.0); Hemoglobin 15.1 g/dl (12.0-16.0); Mean Corpuscular Hemoglobin 29.3 pg (25.0-34.0); Mean Corpuscular Hgb Conc 31.5 g/dL (32.0-36.0); Mean Platelet Volume 10.4 fL (9.4-12.4); Platelet Count 161 K/uL (130-400); RDW Coefficient of Variation 13.3 % (11.5-14.5); Red Blood Count 5.15 M/uL (4.20-5.40); White Blood Count 10.27 K/ul (4.8-10.8)
[2024-02-25 06:59] LABS: Albumin Globulin Ratio 1.6 (0.9-2); Albumin Level 4.2 gm/dl (3.4-5.0); BUN Creatinine Ratio 16.8 (10-20); Bilirubin,Total 0.5 mg/dl (0.2-1.0); Calcium 8.8 mg/dl (8.6-10.3); Creatinine Clr Calc Pharmacy 74.6 ml/min; Est GFR (African American) 72.8 ml/min; Est GFR (Non-African American) 62.9 ml/min; Globulin 2.7 gm/dl (2.5-4.0); Magnesium 1.9 mg/dl (1.7-2.4); Potassium 4.6 mmol/L (3.5-5.1); Total Protein 6.9 gm/dl (6.0-8.3)
[2024-02-25 07:15] LABS: Basophils # (auto) 0.02 K/uL (0.00-0.20); Basophils % (auto) 0.2 %; Immature Granulocytes # (auto) 0.04 K/uL (0.01-0.20); Immature Granulocytes % (auto) 0.4 %; Lymphocytes # (auto) 0.68 K/uL (1.20-3.40); Lymphocytes % (auto) 6.6 %; Monocytes # (auto) 0.26 K/uL (0.11-0.59); Monocytes % (auto) 2.5 %; Neutrophils # (auto) 9.27 K/uL (1.40-6.50); Neutrophils % (auto) 90.3 %
--- NOTE | 2024-02-25 08:11 | Urology Progress Note ---
Date of Service February 25, 2024 Assessment & Plan (1) Hydronephrosis due to obstruction of ureter: (2) Ureteral calculus: (3) Flank pain: Plan 63yoF who presented with back and flank pain and nausea and found to have an obstructing 9 mm calculus at the right UPJ and an obstructing 3 mm calculus in the proximal left ureter. POD #1 s/p cystoscopy and bilateral ureteral stent placement She is tolerating the stents with minimal bother. Afebrile and hemodynamically stable. Labs today reviewed- No leukocytosis and normal renal function. Urinalysis not indicative of infection. No plan for further intervention. Continue tamsulosin. Pyridium PRN added for stent discomfort/dysuria. Will arrange outpatient follow-up with our service to discuss definitive stone treatment. Urology will sign off. Please call with any further questions or concerns. Admission and Anticipated Discharge Date Admission Date: February 24, 2024 Subjective Patient seen at bedside No acute distress On O2 via NC Tolerating the stent with minimal bother Denies fever, chills, nausea, vomiting Voiding without issue Reports some hematuria and dysuria Review of Systems Constitutional: as per Subjective / HPI Gastrointestinal: as per Subjective / HPI Genitourinary: as per Subjective / HPI Physical Exam Constitutional: no acute distress Respiratory: no respiratory distress and no labored breathing Neurologic: moves all extremities and awake Psychiatric: A+Ox3, euthymic affect Results & Data Vital Signs (Past 12 Hours) Vital Signs Temp Pulse Pulse Pulse Pulse Resp BP 02/25/24 07:27 36.6 C 77 18 124/73 02/25/24 04:01 36.4 C L 76 16 140/89 02/24/24 23:10 36.8 C 85 14 145/85 H 02/24/24 22:01 78 02/24/24 22:01 02/24/24 22:00 02/24/24 21:57 76 02/24/24 21:45 36.4 C L 76 18 143/82 H 02/24/24 20:48 36.5 C 78 16 111/74 Pulse Ox Pulse Ox O2 Del Method O2 Del Method O2 Flow Rate 02/25/24 07:27 97 Nasal Cannula 3 02/25/24 04:01 92 Nasal Cannula 4 02/24/24 23:10 91 Nasal Cannula 3 04/29/24 22:01 93 Room Air 02/24/24 22:01 94 Nasal Cannula 3 02/24/24 22:00 Nasal Cannula 3 02/24/24 21:57 02/24/24 21:45 93 Room Air 02/24/24 20:48 91 Room Air PG Care Time/CCT Total # of Minutes Spent Total Time Spent with Patient: Total time spent is greater than 50% in coordination of care (as documented) at patient's floor/unit and/or counseling patient: Coding Level of Care Code 20843 SUB INP/OBS CARE 2/35MIN Diagnoses Hydronephrosis due to obstruction of ureter N13.1 Ureteral calculus N20.1 Flank pain R10.9
[2024-02-25] MEDS ORDERED: PHENAZOPYRIDINE HCL 100 MG TAB PO PRN (12:10)
--- NOTE | 2024-02-25 14:47 | Electrocardiogram Report ---
Test Reason : Blood Pressure : / mmHG Vent. Rate : 066 BPM Atrial Rate : 066 BPM P-R Int : 156 ms QRS Dur : 082 ms QT Int : 412 ms P-R-T Axes : 020 041 014 degrees QTc Int : 431 ms Normal sinus rhythm Nonspecific T wave abnormality Abnormal ECG When compared with ECG of 20-FEB-2021 11:51, T wave inversion now evident in Inferior leads T wave inversion now evident in Anterior leads Confirmed by Scott Lyles ([id number]) on 02/25/2024 2:46:56 PM Referred By: REFERRED SELF Confirmed By:Scott Lyles
--- NOTE | 2024-02-25 17:30 | Discharge Summary ---
Discharge Summary Date of Service February 25, 2024 Admission HPI Per Admitting Provider Larissa is a 63 year old female with a PMH significant for morbid obesity, HTN, and GERD who presented to the [facility] ED on 02/24/24 with complaints of left sided flank/abd pain, and nausea which started approximately 2 days ago. She was noted to be hypertensive at 180/97, and was reported to have an episode of hypoxia with SpO2 in the mid 80s on RA. Labs were significant for a CBC consistent with hemoconcentration but with WBC WNL, stable renal function, and UA with 3+ blood, 1+ leukocyte esterase, 6-10 WBC, >20 RBCs, 3-5 epithelial cells, and negative for bacterial. Ct of the abd/pelvis wo con was read as "1. Mild right-sided hydronephrosis secondary to an obstructing 9 mm calculus of the ureteropelvic junction. 2. Mild left-sided hydronephrosis with a 3 mm calculus in the proximal left ureter. 3. Normal appendix. 4. Hepatic steatosis.". CT angiogram of the chest was read as negative for acute findings. Prior to admission the patient was given 500 mL NSS, 15 mg IV toradol, 4 mg IV Zofran. At the time of the exam the patient was sitting in bed in no acute distress with her bedside, history was obtained from both. I did turn the pat ient's O2 off on arrival and her SpO2 remained stable on RA throughout my history and exam. She states that she has been experiencing intermittent, mild- mod left flank pain over the past month. This am she experienced 10/10, sharp/stabbing, left sided flank pain again. She had associated nausea with dry heaves but denies vomit. Due to the severity of her symptoms she presented to the ED. Denies recent fever, chills, chest pain, cough, SOB, abdominal pain, dysuria, hematuria, increased urinary frequency, diarrhea, melena, LE swelling, and recent trauma. States that she does not use home O2 and has not been tested for EMERSON. Does sleep in a recliner at home as she has never been able to sleep flat. Is a full code. Please refer to Dr. De's attestation for any changes to the treatment plan Admission Exam Per Admitting Provider General: In no acute distress, stated age, morbidly obese, non-toxic appearing HEENT: Normocephalic, atraumatic, no scleral icterus, pupils around round, symmetrical, and reactive to light, moist mucus membranes, trachea midline, no thyromegaly Chest/Pulm: No respiratory distress, symmetrical chest expansion, clear breath sounds throughout Cardiac: RRR, no murmurs noted Abdomen: Negative for ascites and bruising, normoactive bowel sounds, soft, non- tender to palpation throughout : Negative BL CVA tenderness Musculoskeletal: Symmetrical and without signs of acute trauma, upper and lower extremities with full ROM, no atrophy, spasticity, or flaccidity Extremities: Radial, dorsalis pedis, and posterior tibial pulses are intact and symmetrical, no edema noted in the BL LE's Skin: Warm, dry, no rashes , lesions, or scars noted Neuro: Alert and oriented to person, place, month, year, and president, no focal defects, no tremors noted Psych: No acute distress, calm and cooperative during the exam Principal Dx & Hospital Course #1 = Principal Diagnosis (1) Hydronephrosis due to obstruction of ureter: -Presented to the ED for severe left-sided flank pain this am -Noted to have Mild right-sided hydronephrosis secondary to an obstructing 9 mm calculus of the ureteropelvic junction, as-well-as Mild left-sided hydronephrosis with a 3 mm calculus in the proximal left ureter. -Renal function is stable, she is without urinary symptoms or UA consistent with infection/UTI -Patient had cystoscopy, bilateral retrograde pyelogram, and bilateral ureteral stent placement on 02/24/2024 with urology. -Upon discharge, continue tamsulosin. Pyridium as needed for stent discomfort/dysuria. -Follow-up with urology outpatient to discuss definitive stone treatment. (2) Hypoxia: -Patient was reported to have episodes of hypoxia with SpO2 in the mid 80's on RA on admission. -Patient likely has obesity hypoventilation syndrome and possible undiagnosed EMERSON, was likely taking shallow breaths earlier due to severe pain. -Nocturnal pulse ox study revealed 3 desaturation events overnight. Recommend 3 L HS. -Two-step test revealed patient requires supplemental oxygen at 2 L with activity. -Prescription provided upon discharge for supplemental oxygen supplies. (3) Flank pain: -See hydronephrosis due to obstruction of Ureter (4) Ureteral calculus: -See hydronephrosis due to obstruction of Ureter (5) Hypertension: -Stable after adequate pain control -Resumed metoprolol, spironolactone, losartan postoperatively (6) GERD (gastroesophageal reflux disease): -Continue PPI Plan CODE STATUS: Full code Updated Medication List Medication Instructions Recorded Confirmed Type cholecalciferol (vitamin D3) 25 25 mcg PO QAM 02/06/21 02/24/24 History mcg (1,000 unit) tablet (Vitamin D3) omeprazole 20 mg capsule,delayed 20 mg PO DAILY PRN Acid Reflux 05/17/22 02/24/24 History release fluocinonide 0.05 % topical cream 1 applic topical BID PRN itching 11/23/22 02/24/24 Rx #30 grams losartan 25 mg tablet 25 mg PO DAILY #90 tabs 04/02/23 02/24/24 Rx spironolactone 25 mg tablet 25 mg PO DAILY #90 tabs 10/16/23 02/24/24 Rx metoprolol succinate 25 mg 25 mg PO BID #180 tabs 11/01/23 02/24/24 Rx tablet,extended release 24 hr meloxicam 15 mg tablet 15 mg PO DAILY PRN Pain 02/24/24 02/24/24 History phenazopyridine 100 mg tablet 100 mg PO BID PRN Dysuria #30 tabs 02/25/24 Rx (Pyridium) tamsulosin 0.4 mg capsule 0.4 mg PO HS #30 caps 02/25/24 Rx Hospital Stay Data Consultations 02/24/24 15:18 ED Decision to Admit Stat 02/24/24 15:22 Consult Urology Stat Procedures Performed Operation Date: 02/24/24 12:05 Actual Procedures p Cystoscopy, Bilateral Retrograde Pyelogram, Bilateral Stent Placement, (Bilateral) - Sami Chanel, Diagnostic Imagining Performed 02/24/24 13:01 CT abd pelvis wo con Stat 02/24/24 13:47 CT angio chest PE protocol Stat 02/24/24 16:30 FL retrograde includes kub Routine Pending Results Patient Have Any Pending Studies at Discharge: No Discharge Instructions Given to Patient (Per Discharging Provider) Mrs. Corral, You were admitted to the hospital due to bilateral hydronephrosis (swelling of the kidneys) from bilateral obstructing ureteral stones. This is what caused your symptoms of back and flank pain and nausea. You had a cystoscopy, bilateral retrograde pyelogram, and bilateral ureteral stent placements in the OR with urology. Additionally, you experience some hypoxia (low oxygen saturation). You had a nocturnal pulse oximetry study done which found 3 desaturation events overnight. Therefore, you do require supplemental oxygen when you sleep. Finally, the respiratory therapist determined you require some supplemental oxygen with activity. Some discomfort from the ureteral stents is normal. Certain movements may trigger pain or feeling that you need to urinate. You may also experience mild soreness or pressure before during urination. The symptoms will go away few days after the stent is removed. Your urine may be slightly pink or red. This is due to bleeding caused by minor irritation from the stent. This may have been on and off while you have this done. Upon discharge from the hospital: * Continue tamsulosin (Flomax) 0.4 mg capsule by mouth at bedtime. * Take Pyridium 100 mg p.o. twice daily as needed for dysuria (pain with urination). * Wear the supplemental oxygen as directed at bedtime and with activity. * Drink plenty of fluids to help flush out your urinary tract. * Follow-up with urology outpatient. Their office will call you with an appointment date and time. Please contact your healthcare provider or return to the hospital if you experience any of the following: Your urine contains blood clots or you see a large amount of blood-tinged urine, you have symptoms similar to those you had before the stent was placed, you constantly leak urine, fever of 100.4 F or higher, chills, nausea or vomiting, severe pain, the end of the stent comes out of the urethra, shortness of breath, or chest pain. It was a pleasure taking care of you while you were in the hospital, Lisa Jordan PA-C Total Time Total Time Spent Total Time Spent (In Minutes): Greater than 30 minutes spent completing this discharge process including direct patient care, medication reconciliation, documentation, review of labs and images, and coordination of care. Coding Level of Care Code 78271 INP/OBS DISCH >30 MIN Diagnoses Hydronephrosis due to obstruction of ureter N13.1 Hypoxia R09.02 Flank pain R10.9 Ureteral calculus N20.1 Hypertension I10 GERD (gastroesophageal reflux disease) K21.9
== END 2024-02-25 16:09 | disposition home or self-care (01) ==
LOC: ED 12:17 → 2N 12:17 → SUATTDRO 16:14 → 2N 17:42